=== PATIENT | male | born 1945 | race Caucasian/White ===

== ENCOUNTER 2019-08-30 07:49 | Day surgery (SDC) | payer OTHER, MEDICARE, SELFPAY ==
[2019-08-27 08:04] VITALS: BMI 34.0
--- NOTE | 2019-08-30 08:04 | ANES.PREANE2 ---
Pre-Anesthetic Assessment Pre-Anesthetic Assessment: Height/Weight: Height 1.7 m Weight 98.43 kg Preop Diagnosis: Colon CA screening Proposed Procedure: Operation Date: 08/30/19 09:30 Proposed Procedures p Colonoscopy G0104 Z12.11(Not Applicable) - Pastor Paez MD Last intake: to be taken in GI Social: Packs per day: 3 Pack years: 50+ Comment: quit age 29 Exam: Pre-Anes Outpt Exam: alert, oriented x 3, clear to auscultation bilaterally and regular rate & rhythm Airway: Submandibular: WNL Cervical ROM: WNL MP: 2 Dentition: False CV/HEM: CV/HEM: HTN Comments: '18 CABG x3 : Comments: BPH PFSH Anesthesia PFSH: Social History Smoking and tobacco status: former smoker Alcohol intake: former History of recent travel: No Current gender identity: Male Data Anesthesia Cardiac Studies: No Data to Display
[2019-08-30 08:31] VITALS: BP 154/87; PULSE 67; RESP 18; TEMP 36.6; O2SAT 98
[2019-08-30] MEDS: sodium chloride 0.9% 1,000 ML 30 ML (08:38)
--- NOTE | 2019-08-30 09:28 | W.PM.OPSUD ---
Surgery/Procedure H&P Update DATE OF PROCEDURE: August 30, 2019 DATE H&P PERFORMED: 08/23/19 PREOP DIAGNOSIS: c PLANNED PROCEDURE: Operation Date: 08/30/19 09:30 Proposed Procedures p Colonoscopy G0104 Z12.11(Not Applicable) - Pastor Paez MD
[2019-08-30 10:54] VITALS: BP 123/78; PULSE 57; RESP 16; TEMP 36.1; O2SAT 100
--- NOTE | 2019-08-30 11:02 | ANE.PACU2 ---
 Inpatient post-anesthesia follow up: Airway intact: Yes Vital signs: Temperature 97.0 F Pulse Rate 57 Respiratory Rate 16 Blood Pressure 123/78 Pulse Oximetry 100 Oxygen Delivery Me thod Nasal Cannula Oxygen Flow Rate 4 Fraction of Inspir ed Oxygen Hydration adequate: Yes Nausea and vomiting: No Pain level: 1 Mental status: Baseline
[2019-08-30 11:05] VITALS: BP 150/79; PULSE 62; RESP 16; O2SAT 99
[2019-08-30 11:14] VITALS: BP 173/98; PULSE 64; RESP 16; O2SAT 100
== END 2019-08-30 11:35 | disposition home or self-care (01) ==
PROVIDERS: Family Provider Family Medicine; PCP Family Medicine; Visit Provider Internal Medicine
PROC: 0DJD8ZZ Inspection of Lower Intestinal Tract, Via Natural or Artificial Opening Endoscopic (ICD-10-PCS; CPT 45378; principal; 2019-08-30 09:30)
DX: Z12.11 Encounter for screening for malignant neoplasm of colon (principal); Z79.82 Long term (current) use of aspirin; Z87.891 Personal history of nicotine dependence; I10 Essential (primary) hypertension; N40.0 Benign prostatic hyperplasia without lower urinary tract symptoms
CPT/HCPCS: 12345; 45378; G0121; J2704; J7030

== ENCOUNTER 2019-11-07 14:12 | Emergency (ER) | payer OTHER, MEDICARE, SELFPAY ==
--- NOTE | 2019-11-07 14:14 | ECG_ITS ---
Measurements Intervals [place] Rate: 65 P: 21 TX: 198 QRS: -11 QRSD: 159 T: 138 QT: 449 QTc: 470 SINUS RHYTHM LEFT BUNDLE BRANCH BLOCK INTERPRETATION BASED ON A DEFAULT AGE OF 40 YEARS No previous ECG available for comparison Electronically Signed On 11-08-2019 10:32:47 CDT by Blayne Lilly MD [id number] f
--- NOTE | 2019-11-07 14:14 | XRR_ITS ---
PROCEDURE INFORMATION: Exam: XR Chest, 1 View Exam date and time: 11/07/2019 2:15 PM Age: 74 years old Clinical indication: Chest pain TECHNIQUE: Imaging protocol: XR of the chest Views: 1 view. COMPARISON: No relevant prior studies available. FINDINGS: Lungs: No acute infiltrate evident. Both lungs contain multiple small 2-3 mm nodules/granulomas many of which appear calcified. Thin curvilinear scarring or atelectasis left lung base laterally. Pleural space: Unremarkable. No pleural effusion. No pneumothorax. Heart/Mediastinum: No cardiomegaly. Calcified hilar and mediastinal lymph nodes. Bones/joints: Prior sternotomy. XR/XR chest 1V portable [id number] IMPRESSION: No acute process evident.
[2019-11-07 14:22] VITALS: BP 189/108; PULSE 63; RESP 18; TEMP 36.6; O2SAT 97; BMI 32.1
--- NOTE | 2019-11-07 14:46 | ED_ITS ---
HPI - Chest Pain General: Chief Complaint: Chest Pain Stated Complaint: chest pain Time Seen by Provider: 11/07/19 14:26 History of Present Illness: HPI narrative: Patient is a 74-year-old male presenting with chest pain. He says his been having episodes of chest pain off and on for the past several days. He is pretty stoic and is difficult to get a detailed history from. He will not really endorse chest pain or shortness of breath with exertion but does admit that he has been moving slower than usual because of the symptoms. 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 His feet went numb and he developed strong pressure in his chest. He got nauseous with it and a little lightheaded. He said the symptoms are exactly the same as when he had a heart attack a few years ago. Since that time he has had a triple bypass. He has not had any chest pain or shortness of breath since then until the past few days. His primary physician is Dr. henry in [place]. He sees Dr. Fox for his heart. He also has prostate cancer and is being treated in [place] for that. He said he has not had surgery but has had a injection under the skin and he takes a pill for it. No history of blood clots or leg swelling or pain. He does have nighttime leg cramps. MD complaint: chest pain and chest heaviness Pertinent past history: coronary artery disease, prior CO and CABG Onset (ago): day(s) (3) Timing of current episode: episodic Onset: during exertion Pain location: substernal Pain radiation: none Associated symptoms: Reports dyspnea and nausea; Deny fever(s) Review of Systems General: Reports: 10 or more systems reviewed and unremarkable except in HPI and below Const: Reports: fatigue; Denies: fever(s), chills or malaise Eyes: Denies: change in vision ENMT: Denies: odynophagia Card: Reports: chest pain; Denies: swelling of feet/ankles Resp: Reports: dyspnea; Denies: productive cough or non-productive cough GI: Reports: nausea : Denies: flank pain Musc: Denies: neck pain or back pain Skin/Breast: Denies: rash Neuro: Denies: headache(s), numbness in extremities or weakness in extremities [place]/Lymph: Denies: easy bruising or easy bleeding PFS ED PFSH: Social History Smoking and tobacco status: never smoked Alcohol intake: former History of recent travel: No Current gender identity: Male Physical Exam Const: COMMON NORMALS: no acute distress, patient oriented x3, no limitations and alert GENERAL APPEARANCE: cooperative and comfortable HENMT: HEAD & SCALP: normal to inspection FACE & SINUS: normal facial exam Eye: GENERAL EYE: appearance normal, both eyes and all related structures Neck/C-Spine: COMMON NORMALS: supple, no meningeal signs and no JVD Chest: COMMONS NORMALS: normal inspection of the chest Resp: COMMON NORMALS: normal respiratory effort, No use of accessory muscles and clear to auscultation bilaterally AUSCULTATION: clear to auscultation bilaterally Cardio: COMMON NORMALS: no JVD, regular rate, regular rhythm and No murmurs present (Cardio) RATE: regular rate RHYTHM: regular rhythm GI: COMMON NORMALS: Normal to inspection, nondistended, normoactive bowel sounds present, Soft to palpation and non-tender INSPECTION: Yes normal to inspection AUSCULTATION: Yes normoactive bowel sounds PALPATION: Yes Soft to palpation Back/Pelvis: COMMON NORMALS: thoracic and lumbar spine normal to inspection Extremity: COMMON NORMALS: normal to inspection Neuro: COMMON NORMALS: patient oriented x3, moves all extremities, no focal motor deficits and no sensory deficits noted SENSORIUM/ORIENTATION: Yes alert MENINGEAL SIGNS: Yes no meningeal signs Psych: COMMON NORMALS: mental status grossly normal, cooperative and normal affect Skin: COMMON NORMALS: no rashes or lesions noted and turgor normal GENERAL SKIN EXAM: no rashes or lesions noted and turgor normal Course ED course: Patient has a moderately high heart score based on his history of prior CABG. His work-up in the ED was reassuring with negative troponins and EKGs. He is asymptomatic. I had a tech get him up and walk him around the [facility] artment to make sure he did not get dyspneic or chest pain with exertion. He said he felt fine. We discussed the significance of normal work-up in the ED and have that does not rule out future problems or pending problems. 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 We discussed that he is at moderately high risk of a bad event happening in a short time. He understands that does not want to be admitted. He will return if he has more symptoms or any other problems. I have asked the leather case finisher to follow-up with him and make sure he gets a close follow-up appointment with Dr. Fox Vital Signs: Vital signs: Vital Signs Temperature 97.9 F 11/07/19 14:22 Pulse Rate 86 11/07/19 18:36 Respiratory Rate 18 11/07/19 18:36 Blood Pressure 196/76 11/07/19 18:36 Pulse Oximetry 97 11/07/19 18:36 MDM - Chest Pain Lab Data: Labs: Lab Results 11/07/19 11/07/19 11/07/19 Range/Units 14:49 14:49 14:49 WBC 5.5 (4.0-10.0) 10^3/ uL RBC 4.65 (4.1-5.3) 10^6/u L Hgb 14.6 (11.7-16.6) g/dL Hct 44.3 (42.0-52.0) % MCV 95.3 H (80-94) fL MCH 31.4 (28.0-34.0) pg MCHC 33.0 (30.0-36.0) g/dL RDW 14.4 (12.1-15.1) % Plt Count 193 (130-400) 10^3/c mm MPV 9.1 (7.4-10.4) fL Neut % (Auto) 46.0 % Lymph % (Auto) 37.7 % [place] % (Auto) 8.7 % Eos % (Auto) 6.0 % Baso % (Auto) 0.7 % Neut # (Auto) 2.5 (1.8-7.7) 10^3/u L Lymph # (Auto) 2.1 (0.8-4.8) 10^3/u L [place] # (Auto) 0.5 (0.2-0.9) 10^3/u L Eos # (Auto) 0.3 (0.0-0.8) 10^3/u L Baso # (Auto) 0.0 (0.0-0.1) 10^3/u L Nucleated RBC % (a uto) 0 % Nucleated RBCs # 0.0 /100WBC D-Dimer (0-0.59) ug/mIFE U Sodium 139 (136-145) mmol/L Potassium 4.5 (3.5-5.1) mmol/L Chloride 100 (98-107) mmol/L Carbon Dioxide 27 (22-29) mmol/L Anion Gap 16.5 (5-19) BUN 16 (8-23) mg/dL Creatinine 1.0 (0.7-1.2) mg/dL Glucose 117 H (65-115) mg/dL Calculated Osmolal ity 285 (285-295) mOsm/k g Calcium 10.4 (8.5-10.5) mg/dL Total Bilirubin 0.2 (0.15-1.2) mg/dL AST 20 (0-40) U/L ALT 21 (0-41) U/L Alkaline Phosphata se 72 (40-130) IU/L Troponin T Baselin e 16 H (0-15) ng/mL Troponin T 120 Min [place] (0-15) ng/mL Delta Troponin T (0-10) ABS# NT-Pro-B Natriuret Pep 75 (0-125) pg/mL Total Protein 7.6 (6.6-8.7) g/dL Albumin 4.3 (3.5-5.2) g/dL Globulin 3.3 (1.3-4.6) g/dL 11/07/19 11/07/19 Range/Units 14:49 16:58 WBC (4.0-10.0) 10^3/ uL RBC (4.1-5.3) 10^6/u L Hgb (11.7-16.6) g/dL Hct (42.0-52.0) % MCV (80-94) fL MCH (28.0-34.0) pg MCHC (30.0-36.0) g/dL RDW (12.1-15.1) % Plt Count (130-400) 10^3/c mm MPV (7.4-10.4) fL Neut % (Auto) % Lymph % (Auto) % [place] % (Auto) % Eos % (Auto) % Baso % (Auto) % Neut # (Auto) (1.8-7.7) 10^3/u L Lymph # (Auto) (0.8-4.8) 10^3/u L [place] # (Auto) (0.2-0.9) 10^3/u L Eos # (Auto) (0.0-0.8) 10^3/u L Baso # (Auto) (0.0-0.1) 10^3/u L Nucleated RBC % (a uto) % Nucleated RBCs # /100WBC D-Dimer 0.75 H (0-0.59) ug/mIFE U Sodium (136-145) mmol/L Potassium (3.5-5.1) mmol/L Chloride (98-107) mmol/L Carbon Dioxide (22-29) mmol/L Anion Gap (5-19) BUN (8-23) mg/dL Creatinine (0.7-1.2) mg/dL Glucose (65-115) mg/dL Calculated Osmolal ity (285-295) mOsm/k g Calcium (8.5-10.5) mg/dL Total Bilirubin (0.15-1.2) mg/dL AST (0-40) U/L ALT (0-41) U/L Alkaline Phosphata se (40-130) IU/L Troponin T Baselin e (0-15) ng/mL Troponin T 120 Min [place] 16.38 H (0-15) ng/mL Delta Troponin T 0.38 (0-10) ABS# NT-Pro-B Natriuret Pep (0-125) pg/mL Total Protein (6.6-8.7) g/dL Albumin (3.5-5.2) g/dL Globulin (1.3-4.6) g/dL Discharge Plan Discharge Patient Disposition: Home, Self-Care Clinical Impression: Chest pain Qualifiers: Chest pain type: unspecified Qualified Code(s): R07.9 - Chest pain, unspecified Condition: Stable Prescriptions: No Action omega-3 fatty acids [Fish Oil Concentrate] 1,000 mg capsule 1,000 mg PO DAILY RF: 0 bicalutamide 50 mg tablet 50 mg PO DAILY RF: 0 metoprolol succinate 50 mg tablet extended release 24 hr 50 mg PO DAILY RF: 0 tamsulosin 0.4 mg capsule 0.4 mg PO DAILY RF: 0 simvastatin 20 mg tablet 20 mg PO DAILY RF: 0 fluticasone propionate 50 mcg/actuation spray,suspension 1 spray INTRANASAL DAILY RF: 0 aspirin 81 mg tablet,delayed release (DR/EC) 81 mg PO DAILY RF: 0 Xtandi 40 mg capsule 40 mg PO QID RF: 0 cetirizine 10 mg tablet 10 mg PO DAILY RF: 0 oxybutynin chloride 10 mg tablet extended release 24hr 10 mg PO DAILY RF: 0 Discharge Orders: Discharge Order (Routine); Ordered 11/07/19 Ordered By: Ashley Estes Referrals: Tati Henry [Primary Care Provider] - Ronnie Looney MD [Physician] - 1-3 days Discharge Diet: Usual diet Discharge Activity: Limit activity as instructed Patient Instructions: Chest Pain (ED) Activity Restrictions/Additional Instructions: Follow up with Dr. Looney for re-evaluation of your chest discomfort. Return to the ED immediately if worse in any way. Discharge Date/Time: 11/07/19 18:40 Coding Level of Care Code ED Boiler Welder for Markel Fwd Exam Comprehensive
[2019-11-07 14:56] LABS: Basophils % 0.7 %; Eosinophils # 0.3 10^3/uL (0.0-0.8); Hematocrit 44.3 % (42.0-52.0); Hemoglobin 14.6 g/dL (11.7-16.6); Lymphocytes # 2.1 10^3/uL (0.8-4.8); Lymphocytes % 37.7 %; Mean Corpuscular Hemoglobin 31.4 pg (28.0-34.0); Mean Corpuscular Volume 95.3 fL (80-94); Mean Platelet Volume 9.1 fL (7.4-10.4); Monocytes # 0.5 10^3/uL (0.2-0.9); Monocytes % 8.7 %; Neutrophils # 2.5 10^3/uL (1.8-7.7); Nucleated Red Blood Cells % 0 %; Platelet Count 193 10^3/cmm (130-400); Red Blood Count 4.65 10^6/uL (4.1-5.3); Red Cell Distribution Width 14.4 % (12.1-15.1); White Blood Count 5.5 10^3/uL (4.0-10.0)
[2019-11-07 15:19] LABS: Troponin(5th) Baseline 16 ng/mL (0-15)
[2019-11-07 15:29] LABS: Alanine Aminotransferase 21 U/L (0-41); Albumin Level 4.3 g/dL (3.5-5.2); Alkaline Phosphatase 72 IU/L (40-130); Anion Gap 16.5 (5-19); Aspartate Amino Transferase 20 U/L (0-40); Blood Urea Nitrogen 16 mg/dL (8-23); Calcium 10.4 mg/dL (8.5-10.5); Carbon Dioxide 27 mmol/L (22-29); Chloride 100 mmol/L (98-107); Globulin 3.3 g/dL (1.3-4.6); Glucose 117 mg/dL (65-115); NT Pro B Type Natriuretic Pept 75 pg/mL (0-125); Osmolality Calculated 285 mOsm/kg (285-295); Potassium 4.5 mmol/L (3.5-5.1); Sodium 139 mmol/L (136-145); Total Bilirubin 0.2 mg/dL (0.15-1.2); Total Protein 7.6 g/dL (6.6-8.7)
[2019-11-07] MEDS: aspirin 81 mg Chew Tablet 324 MG PO (15:42)
[2019-11-07 15:44] LABS: D Dimer 0.75 ug/mIFEU (0-0.59)
[2019-11-07 15:51] VITALS: BP 164/85; PULSE 57; RESP 16; O2SAT 94
--- NOTE | 2019-11-07 16:14 | ECG_ITS ---
Measurements Intervals [place] Rate: 54 P: 31 DC: 203 QRS: -5 QRSD: 140 T: 130 QT: 484 QTc: 459 SINUS BRADYCARDIA LEFT BUNDLE BRANCH BLOCK [120+ ms QRS DURATION, 80+ ms Q/S IN V1/V2, 85+ ms R IN I/aVL/V5/V6] No previous ECG available for comparison Electronically Signed On 11-08-2019 10:35:03 CDT by Blayne Lilly MD [id number]
--- NOTE | 2019-11-07 16:16 | CTR_ITS ---
PROCEDURE INFORMATION: Exam: CT Angiography Chest With Contrast Exam date and time: 11/07/2019 4:41 PM Age: 74 years old Clinical indication: Shortness of breath; Patient HX: C/O chest pressure x 1 week worsening this am w SOB; Additional info: Sod, cp, h/o cancer TECHNIQUE: Imaging protocol: Computed tomographic angiography of the chest with intravenous contrast. 3D rendering: MIP and/or 3D reconstructed images were created by the technologist. Radiation optimization: All CT scans at this facility use at least one of these dose optimization techniques: automated exposure control; mA and/or kV adjustment per patient size (includes targeted exams where dose is matched to clinical indication); or iterative reconstruction. Contrast material: OMNI 350; Contrast volume: 95 ml; Contrast route: 20G; COMPARISON: CR (CHEST, ) 11/07/2019 2:41 PM RADIATION DOSE METRICS: Total DLP: 619.49 mGy-cm FINDINGS: Pulmonary arteries: Normal. No pulmonary emboli. Aorta: Unremarkable. No aortic aneurysm. No aortic dissection. Lungs: Both lungs contain numerous small 3-4 mm benign calcified granulomas. Areas of fine subpleural reticular density most pronounced in the lung bases posteriorly suggesting minor atelectasis or subpleural fibrosis. Small approximately 2 cm area of chronic appearing peribronchial thickening superior-medial aspect of right middle lobe (series 2, axial image 249). Pleural space: Unremarkable. No pneumothorax. No pleural effusion. Heart: Prior CABG. Mild to moderate coronary artery calcification. No cardiomegaly. Lymph nodes: Calcified hilar and mediastinal lymph nodes. Bones/joints: Unremarkable. No acute fracture. Soft tissues: Unremarkable. CT/CT angio chest PE protcl [id number] IMPRESSION: 1.) No acute process evident. 2.) Old granulomatous disease. Areas of fine subpleural reticular density most pronounced in the lung bases posteriorly suggesting minor atelectasis or subpleural fibrosis. Small approximately 2 cm area of chronic appearing peribronchial thickening superior-medial aspect of right middle lobe (series 2, axial image 249). Radiation Dose CTDIVOL = (mGy): DLP = 619.49 (mGy-cm)
[2019-11-07] MEDS: iohexol 350 mg/mL 100 mL Btl IV (16:58)
[2019-11-07 17:27] VITALS: BP 173/76; PULSE 54; RESP 14; O2SAT 96
[2019-11-07 17:39] LABS: Troponin 5 2HR 16.38 ng/mL (0-15); Troponin 5 2HR Delta 0.38 ABS# (0-10)
[2019-11-07 18:31] VITALS: BP 170/99; PULSE 100; RESP 16; O2SAT 98
[2019-11-07 18:36] VITALS: BP 196/76; PULSE 86; RESP 18; O2SAT 97
--- NOTE | 2019-11-10 11:10 | DCPLANNER ---
manager payment had message to schedule a follow up appointment for patient with [facility]. manager payment called [facility], spoke with Marine, gave clinic patients information. manager payment was told that patients information would be printed and reviewed. Clinic will call patient with appointment information.
--- NOTE | 2019-11-12 13:54 | DCPLANNER ---
Patient has a follow up appointment scheduled for Saturday, December 28, 2019 at 2:00. Clinic will call patient with appointment information.
--- NOTE | 2019-12-29 15:21 | DCPLANNER ---
Patient did attend appointment scheduled for 12.28.19 with [facility].
== END 2019-11-07 18:40 | disposition home or self-care (01) ==
PROVIDERS: Physician Assistant; Emergency Provider Emergency Medicine; PCP Family Medicine
DX: R07.9 Chest pain, unspecified (principal); Z79.82 Long term (current) use of aspirin
CPT/HCPCS: 12345; 36415; 71045; 71275; 80053; 83880; 84484; 85025; 85378; 93005; 93010; 99283; 99284; Q9967

== ENCOUNTER 2020-04-22 22:40 | Emergency (ER) | payer OTHER, MEDICARE, SELFPAY ==
--- NOTE | 2020-04-22 22:45 | ECG_ITS ---
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 Measurements Intervals [place] Rate: 63 P: 33 MS: 178 QRS: 57 QRSD: 174 T: 194 QT: 465 QTc: 479 Interpretive Statements SINUS RHYTHM LEFT BUNDLE BRANCH BLOCK [120+ ms QRS DURATION, 80+ ms Q/S IN V1/V2, 85+ ms R IN I/aVL/V5/V6] Compared to ECG 11/07/2019 16:15:01 Sinus bradycardia no longer present Electronically Signed On 04-23-2020 9:21:33 DIRT CONTRACTOR by Margot Ingram M.D. [id number] f
--- NOTE | 2020-04-22 22:45 | XRR_ITS ---
PROCEDURE INFORMATION: Exam: XR Chest, 1 View Exam date and time: 04/22/2020 11:11 PM Age: 74 years old Clinical indication: Chest pain; Type not specified TECHNIQUE: Imaging protocol: XR of the chest Views: 1 view. COMPARISON: CR (CHEST, ) 11/07/2019 2:41 PM FINDINGS: Lungs: Unremarkable. No consolidation. Pleural space: Unremarkable. No pleural effusion. No pneumothorax. Heart/Mediastinum: Mild cardiomegaly. Bones/joints: Sternotomy wires. XR/XR chest 1V portable [id number] IMPRESSION: 1. Negative for infiltrate 2. Mild cardiomegaly.
[2020-04-22 22:49] VITALS: BP 179/94; PULSE 63; RESP 14; TEMP 36.3; O2SAT 96; BMI 32.8
--- NOTE | 2020-04-22 22:51 | W.ED.CHESTPA ---
HPI - Chest Pain General: Chief Complaint: Chest Pain Stated Complaint: cp Time Seen by Provider: 04/22/20 22:43 Source: patient and family Mode of arrival: ambulatory Limitations: no limitations History of Present Illness: HPI narrative: Mr. Lerma is a very nice 74-year-old male comes in complaining of chest pain that began about an hour and a half prior to arrival. He describes it as a mild ache in his chest that lasted approximately 2 to 3 seconds and then is followed by a quick sharp pain. The pain is in the upper center of his chest. It does not radiate. He denies any associated shortness of breath, diaphoresis, nausea or vomiting, syncope/near syncope, or palpitations. Patient denies any leg pain or swelling. Patient denies having anything similar to this in the recent or distant past. The pain episodes are so brief that he is unaware if there are any aggravating or alleviating factors. He states he has had approximately 5-7 episodes in the past hour and a half. Associated symptoms: Deny abdominal pain, diaphoresis, dyspnea, fever(s), nausea, palpitations, syncope or vomiting Review of Systems Const: Denies: fever(s), chills, body aches, fatigue, malaise or diaphoresis Eyes: Denies: change in vision, blurry vision, photophobia, eye discomfort, eye discharge, eye redness or yellow eyes ENMT: Denies: throat pain, odynophagia, hoarseness, swelling of lips/tongue, ear or mastoid pain, ear discharge, change in hearing or nasal discharge Card: Reports: chest pain; Denies: palpitations, irregular heart rhythm, edema, lightheadedness, syncope, pre-syncope, dyspnea on exertion or orthopnea Resp: Denies: dyspnea, productive cough, non-productive cough, wheezing, hemoptysis or chest congestion GI: Denies: abdominal pain, nausea, vomiting, hematemesis, coffee ground emesis, heartburn, diarrhea, constipation, GI cramping, hematochezia or melena : Denies: flank pain, dysuria, urinary frequency, urinary urgency or hematuria Musc: Denies: neck pain, back pain, extremity pain, extremity swelling, joint pain, joint swelling, joint redness, joint warmth or joint stiffness Skin/Breast: Denies: rash, pruritus, erythema, skin pain or skin tenderness Neuro: Denies: headache(s), numbness in extremities, weakness in extremities, sensory changes, lack of coordination, difficulty walking, dizziness, vertigo, confusion, Slurred speech present or seizure-like activity [place]/Lymph: Denies: easy bruising, easy bleeding, petechiae, purpura or enlarged lymph nodes All/Imm: Denies: urticaria, throat swelling, tongue swelling, facial swelling or acute wheezing PFSH ED PFSH: Medical History (Updated 04/23/20 @ 01:13 by Rosina Candelaria) CAD (coronary artery disease) Essential hypertension Hx of atherosclerotic cardiovascular disease Hx of chest pain Hyperlipemia Prostate cancer Surgical History (Updated 01/01/20 @ 22:01 by Ronnie Looney MD) Hx of CABG Social History Smoking and tobacco status: never smoked Alcohol intake: former History of recent travel: No Current gender identity: Male Physical Exam Const: COMMON NORMALS: no acute distress, patient oriented x3, no limitations and alert GENERAL APPEARANCE: cooperative HENMT: COMMON NORMALS: normocephalic, atraumatic, external ears normal, EAC's normal and Normal external nose present HEAD & SCALP: normal to inspection, normocephalic and atraumatic FACE & SINUS: normal facial exam and face symmetric NOSE: Normal external nose present and Normal nares present EXTERNAL EAR: Yes external ears normal EXTERNAL AUDITORY CANAL: EAC's normal MOUTH: Normal oral and palatal mucosa present, lip normal and tongue normal Eye: COMMON NORMALS: Equal, round and reactive pupils present and conjunctivae normal GENERAL EYE: appearance normal, both eyes and all related structures ALIGNMENT: Yes alignment normal PERIORBITAL: periorbital findings normal EYELID: eyelids normal CONJUNCTIVA: Yes conjunctivae normal SCLERA: sclerae normal PUPIL: Yes Equal, round and reactive pupils present Neck/C-Spine: COMMON NORMALS: full ROM, no lymphadenopathy, supple, no meningeal signs and no JVD GENERAL: Yes normal visual inspection and Yes trachea midline Chest: COMMONS NORMALS: normal inspection of the chest and normal palpation of entire chest wall Resp: COMMON NORMALS: normal respiratory effort, No retractions, No use of accessory muscles and clear to auscultation bilaterally EFFORT & INSPECTION: Yes able to speak in complete sentences and Yes symmetric chest movement AUSCULTATION: clear to auscultation bilaterally, no crackles, no rales, no rhonchi and no wheezes Cardio: COMMON NORMALS: no JVD, regular rate, regular rhythm, S1 normal heart sound present and S2 normal heart sound present RATE: regular rate RHYTHM: regular rhythm HEART SOUNDS: S1 normal heart sound present, S2 normal heart sound present, no click, no gallops, no murmurs and no rubs GI: COMMON NORMALS: Soft to palpation and No hepatosplenomegaly present PALPATION: Yes Soft to palpation, No Tenderness to palpation present (GI), No Guarding due to palpation present (GI), No Rigid due to palpation, Yes No hepatosplenomegaly present, No Hernia present, No Palpable mass present and No Pulsatile mass present : COMMON NORMALS: Yes no CVA tenderness BLADDER/KIDNEY EXAM: Yes no CVA tenderness Back/Pelvis: COMMON NORMALS: no CVA tenderness, thoracic and lumbar spine normal to inspection, no thoracic nor lumbar tenderness and thoraco-lumbar ROM normal Extremity: COMMON NORMALS: normal to inspection, full ROM, capillary refill normal, no joint enlargement, no clubbing, cyanosis or edema and no calf tenderness Neuro: COMMON NORMALS: patient oriented x3, CN's II-XII intact bilaterally, moves all extremities, no focal motor deficits and no sensory deficits noted SENSORIUM/ORIENTATION: Yes alert MENINGEAL SIGNS: Yes no meningeal signs SPEECH: speech normal Psych: COMMON NORMALS: mental status grossly normal, Normal thought process present, cooperative, normal affect, speech normal and activity/motor behavior normal SPEECH: Yes normal speech THOUGHT PROCESS: Normal thought process present Skin: COMMON NORMALS: no rashes or lesions noted, turgor normal, no jaundice, no petechiae and no mottling GENERAL SKIN EXAM: no rashes or lesions noted and turgor normal Course Vital Signs: Vital signs: Vital Signs Temperature 97.3 F L 04/23/20 02:07 Pulse Rate 57 L 04/23/20 02:07 Respiratory Rate 16 04/23/20 02:07 Blood Pressure 158/83 04/23/20 02:07 Pulse Oximetry 98 04/23/20 02:07 MDM - Chest Pain MDM Narrative: Medical decision making narrative: Mr. Lerma is a nice 74-year-old male who comes in complaining of pain in his chest that is 8 mild dull ache that lasts 1 to 2 seconds followed by a sudden sharp pain that lasts 1 second. The patient has had approximately 12 episodes of this since onset. He has had several episodes here. The pain itself lasts no more than 2 to 3 seconds. He has no other associated symptoms such as radiation of the pain, shortness of breath, diaphoresis, nausea vomiting, or syncope or near syncope. 3 years ago when the patient had cardiac type pain he stated it was completely different he describes it as a pressure that radiated out to both shoulders down both arms with shortness of breath diaphoresis and nausea. Patient has had no problems with cardiac type pain since he had his bypass surgery 3 years ago. Tonight the patient has had 2 - troponins here and his EKG is at its baseline with a left bundle branch block. Using the hospital chest pain pathway the patient does have a heart score of 5 primarily due to his age and risk factors. Using the T-MACS decision Aid he scores as a low risk with a less than 3% chance of MACE. Despite this I talked to the patient and his at length about his heart score and his risk factors of heart disease. I have recommended and offered the patient to come into the hospital for formal cardiac rule out, possible cardiology consult and stress testing but he refused. I then offered to at least keep him here until I can get a 6-hour troponin but he refused this as well. I informed him that his risk was mild to moderate but with more than 1% risk I was uncomfortable sending him home but despite my trying to convince him to stay he declined and wanted to go home. I again reviewed with him that the risks of a heart problem that were missed could result in or severe permanent disability but he still refused to stay and wanted to go home. He did agree to follow-up as an outpatient for an outpatient stress test and cardiology appointment with Dr. Marion but [facility] The patient did understand he could return if his symptoms changed or he changed his mind but at this time he seems fairly convinced that this is not his heart and wants to go home. The patient was warned but he was also welcomed to return. Lab Data: Attestation: I reviewed the patient's lab results. Labs: Lab Results 04/22/20 04/22/20 04/22/20 Range/Units 23:08 23:08 23:08 WBC 7.0 (4.0-10.0) 10^3/ uL RBC 4.52 (4.1-5.3) 10^6/u L Hgb 14.1 (11.7-16.6) g/dL Hct 43.0 (42.0-52.0) % MCV 95.1 H (80-94) fL MCH 31.2 (28.0-34.0) pg MCHC 32.8 (30.0-36.0) g/dL RDW 14.4 (12.1-15.1) % Plt Count 209 (130-400) 10^3/c mm MPV 9.2 (7.4-10.4) fL Neut % (Auto) 47.7 % Lymph % (Auto) 37.3 % [place] % (Auto) 9.1 % Eos % (Auto) 4.6 % Baso % (Auto) 0.6 % Neut # (Auto) 3.32 (1.8-7.7) 10^3/u L Lymph # (Auto) 2.6 (0.8-4.8) 10^3/u L [place] # (Auto) 0.6 (0.2-0.9) 10^3/u L Eos # (Auto) 0.3 (0.0-0.8) 10^3/u L Baso # (Auto) 0.0 (0.0-0.1) 10^3/u L Nucleated RBC % (a uto) 0 % Nucleated RBCs # 0.0 /100WBC PT 12.90 (12.1-14.9) SECO NDS INR 0.94 (0.8-1.2) D-Dimer (0-0.59) ug/mIFE U Sodium 136 (136-145) mmol/L Potassium 3.9 (3.5-5.1) mmol/L Chloride 100 (98-107) mmol/L Carbon Dioxide 26 (22-29) mmol/L Anion Gap 13.9 (5-19) BUN 21 (8-23) mg/dL Creatinine 0.9 (0.7-1.2) mg/dL GFR Calculation Not Reportable Glucose 106 (65-115) mg/dL Calculated Osmolal ity 285 (285-295) mOsm/k g Calcium 9.4 (8.5-10.5) mg/dL Magnesium 1.9 (1.7-2.3) mg/dL Total Bilirubin 0.2 (0.15-1.2) mg/dL AST 19 (0-40) U/L ALT 23 (0-41) U/L Alkaline Phosphata se 82 (40-130) IU/L Troponin T Baselin e (0-15) ng/L Troponin T 120 Min [place] (0-15) ng/L Delta Troponin T (0-10) ABS# NT-Pro-B Natriuret Pep 82 (0-125) pg/mL Total Protein 7.2 (6.6-8.7) g/dL Albumin 4.2 (3.5-5.2) g/dL Globulin 3.0 (1.3-4.6) g/dL Lipase 63 H (13-60) U/L 04/22/20 04/22/20 04/23/20 Range/Units 23:08 23:08 00:19 WBC (4.0-10.0) 10^3/ uL RBC (4.1-5.3) 10^6/u L Hgb (11.7-16.6) g/dL Hct (42.0-52.0) % MCV (80-94) fL MCH (28.0-34.0) pg MCHC (30.0-36.0) g/dL RDW (12.1-15.1) % Plt Count (130-400) 10^3/c mm MPV (7.4-10.4) fL Neut % (Auto) % Lymph % (Auto) % [place] % (Auto) % Eos % (Auto) % Baso % (Auto) % Neut # (Auto) (1.8-7.7) 10^3/u L Lymph # (Auto) (0.8-4.8) 10^3/u L [place] # (Auto) (0.2-0.9) 10^3/u L Eos # (Auto) (0.0-0.8) 10^3/u L Baso # (Auto) (0.0-0.1) 10^3/u L Nucleated RBC % (a uto) % Nucleated RBCs # /100WBC PT (12.1-14.9) SECO NDS INR (0.8-1.2) D-Dimer 0.39 (0-0.59) ug/mIFE U Sodium (136-145) mmol/L Potassium (3.5-5.1) mmol/L Chloride (98-107) mmol/L Carbon Dioxide (22-29) mmol/L Anion Gap (5-19) BUN (8-23) mg/dL Creatinine (0.7-1.2) mg/dL GFR Calculation Glucose (65-115) mg/dL Calculated Osmolal ity (285-295) mOsm/k g Calcium (8.5-10.5) mg/dL Magnesium (1.7-2.3) mg/dL Total Bilirubin (0.15-1.2) mg/dL AST (0-40) U/L ALT (0-41) U/L Alkaline Phosphata se (40-130) IU/L Troponin T Baselin e 14 (0-15) ng/L Troponin T 120 Min [place] 13.76 (0-15) ng/L Delta Troponin T -0.24 L (0-10) ABS# NT-Pro-B Natriuret Pep (0-125) pg/mL Total Protein (6.6-8.7) g/dL Albumin (3.5-5.2) g/dL Globulin (1.3-4.6) g/dL Lipase (13-60) U/L Imaging Data^: CXR: Attestation: I personally reviewed and interpreted this imaging study as follows: My impression: No acute cardiopulmonary findings. EKG Data^: EKG 1: Attestation: I personally reviewed and interpreted this EKG as follows: EKG interpretation date: 04/23/20 EKG interpretation time: 22:49 Interpretation: Normal sinus rhythm at 63 beats a minute, left bundle branch block, appropriate discordance. Similar to previous EKG 2: Attestation: I personally reviewed and interpreted this EKG as follows: EKG interpretation date: 04/23/20 EKG interpretation time: 00:28 Interpretation: Sinus bradycardia 55 beats a minute, left bundle branch block, no other acute ST-T wave changes. Similar to previous Discharge Plan Discharge Patient Disposition: Home Clinical Impression: Chest pain Qualifiers: Chest pain type: unspecified Qualified Code(s): R07.9 - Chest pain, unspecified Condition: Stable Prescriptions: No Action omega-3 fatty acids [Fish Oil Concentrate] 1,000 mg capsule 1,000 mg PO DAILY RF: 0 bicalutamide 50 mg tablet 50 mg PO DAILY RF: 0 metoprolol succinate 50 mg tablet extended release 24 hr 50 mg PO DAILY RF: 0 tamsulosin 0.4 mg capsule 0.4 mg PO DAILY RF: 0 simvastatin 20 mg tablet 20 mg PO DAILY RF: 0 fluticasone propionate 50 mcg/actuation spray,suspension 1 spray INTRANASAL DAILY RF: 0 aspirin 81 mg tablet,delayed release (DR/EC) 81 mg PO DAILY RF: 0 Xtandi 40 mg capsule 40 mg PO QID RF: 0 cetirizine 10 mg tablet 10 mg PO DAILY RF: 0 oxybutynin chloride 10 mg tablet extended release 24hr 10 mg PO DAILY RF: 0 Discharge Orders: Discharge Order (Routine); Ordered 04/23/20 Ordered By: Rosina Candelaria Referrals: Tati Cole [Primary Care Provider] - 1-3 days Discharge Diet: Advance as tolerated Discharge Activity: Increase activity as tolerated Patient Instructions: Chest Pain (ED) Activity Restrictions/Additional Instructions: Please return to the ER immediately for any of the signs or symptoms listed on your discharge instruction sheets, worsening/changing of your symptoms, you are not getting better as quickly as expected, or for ANY other cause or concerns. You have been offered admission to the hospital for further evaluation of your heart including consult by crystallizer operator and possible stress test. I have offered to keep you here in the ER longer to test your heart further but you have declined both options. As we discussed heart problems can be life-threatening so if your pain does not resolve, becomes more frequent, or you develop any other associated symptoms with this you are more than welcome to return to the ER at any time for recheck. I have advised the safest thing which is to come into the hospital for further testing but you have declined so we will have you set up for an outpatient stress test and to follow-up with Dr. Marion for further testing. At any time should you change your mind you are more than welcome to return to the ER for recheck. Coding Level of Care Code ED Switch Coupler for Markel Fwd Exam Comprehensive
[2020-04-22] MEDS: aspirin 325 mg Tablet PO (22:53)
[2020-04-22 23:21] LABS: Basophils % 0.6 %; Eosinophils # 0.3 10^3/uL (0.0-0.8); Eosinophils % 4.6 %; Hemoglobin 14.1 g/dL (11.7-16.6); Lymphocytes # 2.6 10^3/uL (0.8-4.8); Lymphocytes % 37.3 %; Mean Corpuscular HGB Conc 32.8 g/dL (30.0-36.0); Mean Corpuscular Hemoglobin 31.2 pg (28.0-34.0); Mean Corpuscular Volume 95.1 fL (80-94); Mean Platelet Volume 9.2 fL (7.4-10.4); Monocytes # 0.6 10^3/uL (0.2-0.9); Monocytes % 9.1 %; Neutrophils # 3.32 10^3/uL (1.8-7.7); Neutrophils % 47.7 %; Nucleated Red Blood Cells % 0 %; Platelet Count 209 10^3/cmm (130-400); Red Blood Count 4.52 10^6/uL (4.1-5.3); Red Cell Distribution Width 14.4 % (12.1-15.1)
[2020-04-22 23:24] VITALS: BP 159/89; PULSE 63; RESP 20; O2SAT 96
[2020-04-22 23:30] VITALS: BP 143/80; PULSE 63; RESP 21; O2SAT 95
[2020-04-22 23:36] LABS: INR 0.94 (0.8-1.2)
[2020-04-22 23:46] LABS: Troponin(5th) Baseline 14 ng/L (0-15)
[2020-04-22 23:52] LABS: Alanine Aminotransferase 23 U/L (0-41); Albumin Level 4.2 g/dL (3.5-5.2); Alkaline Phosphatase 82 IU/L (40-130); Anion Gap 13.9 (5-19); Aspartate Amino Transferase 19 U/L (0-40); Blood Urea Nitrogen 21 mg/dL (8-23); Calcium 9.4 mg/dL (8.5-10.5); Carbon Dioxide 26 mmol/L (22-29); Chloride 100 mmol/L (98-107); Glucose 106 mg/dL (65-115); Lipase 63 U/L (13-60); Magnesium 1.9 mg/dL (1.7-2.3); NT Pro B Type Natriuretic Pept 82 pg/mL (0-125); Osmolality Calculated 285 mOsm/kg (285-295); Potassium 3.9 mmol/L (3.5-5.1); Sodium 136 mmol/L (136-145); Total Bilirubin 0.2 mg/dL (0.15-1.2); Total Protein 7.2 g/dL (6.6-8.7)
[2020-04-23] VITALS: BP 135/76; PULSE 61; RESP 15; O2SAT 96
[2020-04-23 00:30] VITALS: BP 156/83; PULSE 66; RESP 14; O2SAT 97
[2020-04-23 00:38] LABS: D Dimer 0.39 ug/mIFEU (0-0.59)
[2020-04-23] MEDS: acetaminophen 500 mg Tablet 1000 MG PO (00:44)
--- NOTE | 2020-04-23 00:45 | ECG_ITS ---
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 Measurements Intervals [place] Rate: 55 P: 38 MI: 188 QRS: 59 QRSD: 177 T: 229 QT: 495 QTc: 477 Interpretive Statements SINUS BRADYCARDIA LEFT BUNDLE BRANCH BLOCK [120+ ms QRS DURATION, 80+ ms Q/S IN V1/V2, 85+ ms R IN I/aVL/V5/V6] Compared to ECG 04/22/2020 22:49:24 Sinus rhythm no longer present Electronically Signed On 04-23-2020 9:27:39 CLAIM MANAGER by Margot Ingram M.D. [email or web address] [email or web address] [id number]
[2020-04-23] MEDS: ketorolac 30 mg/mL INJ 10 MG IVP (00:47)
[2020-04-23 00:52] LABS: Troponin 5 2HR 13.76 ng/L (0-15)
[2020-04-23 01:00] VITALS: BP 155/86; PULSE 57; RESP 18; O2SAT 97
[2020-04-23 01:00] LABS: Troponin 5 2HR Delta -0.24 ABS# (0-10)
[2020-04-23 02:07] VITALS: BP 158/83; PULSE 57; RESP 16; TEMP 36.3; O2SAT 98
--- NOTE | 2020-04-24 15:57 | DCPLANNER ---
corporate safety manager had message to schedule a follow up appointment for patient with [facility], and an outpatient stress test. corporate safety manager cannot schedule an out patient stress test due to the patient having [facility] insurance. The VA will not pay for a stress test from the ED. Patient will need to follow up with [facility] and if a physician at [facility] determines that a patient will need to have a stress test, then [facility] can order the out patient stress test. corporate safety manager did call [facility], spoke with Merissa, a follow up appointment is scheduled for Saturday, April 25, 2020 at 10:00 with AUTOMATIC SPLICING MACHINE OPERATOR, Kriss Quezada. corporate safety manager called patient, spoke with patients , gave her the appointment information.
--- NOTE | 2020-05-30 12:32 | DCPLANNER ---
Patient had a follow up appointment scheduled for 04.25.20 with [facility] - patient did attend appointment.
== END 2020-04-23 02:07 | disposition home or self-care (01) ==
PROVIDERS: Emergency Provider Emergency Medicine; PCP Family Medicine
DX: R07.9 Chest pain, unspecified (principal); Z79.82 Long term (current) use of aspirin; I25.10 Atherosclerotic heart disease of native coronary artery without angina pectoris; I10 Essential (primary) hypertension; E78.5 Hyperlipidemia, unspecified; Z85.46 Personal history of malignant neoplasm of prostate; Z95.1 Presence of aortocoronary bypass graft
CPT/HCPCS: 12345; 71045; 80053; 83690; 83735; 83880; 84484; 85025; 85378; 85610; 93005; 96374; 96375; 99283; 99284; J1885

== ENCOUNTER 2020-10-16 09:31 | Emergency (ER) | payer OTHER, MEDICARE, SELFPAY ==
[2020-10-16 09:45] VITALS: BP 154/85; PULSE 64; RESP 18; TEMP 36.3; O2SAT 95; BMI 33.6
--- NOTE | 2020-10-16 11:21 | XRR_ITS ---
PROCEDURE INFORMATION: Exam: XR Chest Exam date and time: 10/16/2020 11:43 AM Age: 75 years old Clinical indication: Cough and fever and shortness of breath; Patient HX: HX of prostate cancer; Additional info: Cough, fever TECHNIQUE: Imaging protocol: XR of the chest. Views: 1 view. COMPARISON: CR XR chest 1V portable [id number] 04/22/2020 11:16 PM FINDINGS: Lungs: There are scattered tiny benign calcified granulomas in the lungs. Otherwise the lungs are clear. Pleural spaces: Unremarkable. No pleural effusion. No pneumothorax. Heart/Mediastinum: The patient has undergone coronary bypass surgery. The heart is not enlarged. Benign calcified mediastinal lymph nodes are present. Bones/joints: Unremarkable. XR/XR chest 1V portable [id number] IMPRESSION: No acute cardiopulmonary abnormality.
--- NOTE | 2020-10-16 11:24 | ECG_ITS ---
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 Measurements Intervals [place] Rate: 61 P: 42 NM: 196 QRS: 42 QRSD: 136 T: 81 QT: 450 QTc: 454 Interpretive Statements SINUS RHYTHM INTRAVENTRICULAR CONDUCTION DELAY [130+ ms QRS DURATION] Compared to ECG 04/23/2020 00:28:11 Intraventricular conduction delay now present Sinus bradycardia no longer present Left bundle-branch block no longer present Electronically Signed On 10-18-2020 7:59:38 CDT by Javier Zepeda M.D. [id number]
--- NOTE | 2020-10-16 11:25 | W.ED.COVID ---
HPI - COVID General: Chief Complaint: COVID symptoms Stated Complaint: DIZZY, COUGH, LETHARGIC Time Seen by Provider: 10/16/20 11:21 Triage information: Has fever, cough or shortness of breath. No known COVID + exposure last 14 days History of Present Illness: HPI Narrative: Patient has been ill 5 days since last Friday. Patient reports fatigue. Patient has a history of coronary artery disease, prostate cancer, and high cholesterol. Patient takes medications for his chronic illnesses. Patient does not know of any Covid exposure. Patient's spouse is also ill. Patient appears mildly unwell. Patient appears no acute distress. MD complaint: has COVID symptoms Prior covid testing: no COVID 19 common symptoms: positive cough and fatigue Severity: moderate Pertinent comorbid conditions: heart disease Treatment prior to arrival: none COVID Results: SARS-CoV-2 Antigen (Rapid) Positive (Negative) H 10/16/20 12:20 10/16/20 Review of Systems General: Reports: 10 or more systems reviewed and unremarkable except in HPI and below Const: Reports: fatigue PFSH ED PFSH: Medical History CAD (coronary artery disease) Essential hypertension Hx of atherosclerotic cardiovascular disease Hx of chest pain Hyperlipemia Prostate cancer Surgical History Hx of CABG Social History Smoking and tobacco status: never smoked Alcohol intake: former History of recent travel: No Current gender identity: Male Physical Exam Const: COMMON NORMALS: no acute distress and patient oriented x3 GENERAL APPEARANCE: cooperative HENMT: COMMON NORMALS: normocephalic and Normal external nose present HEAD & SCALP: normal to inspection and normocephalic NOSE: Normal external nose present MOUTH: Normal oral and palatal mucosa present THROAT: postnasal drainage Eye: GENERAL EYE: appearance normal, both eyes and all related structures Neck/C-Spine: COMMON NORMALS: full ROM Lymph: LYMPHATIC: no lymphadenopathy noted Chest: COMMONS NORMALS: normal inspection of the chest Resp: COMMON NORMALS: normal respiratory effort EFFORT & INSPECTION: Yes able to speak in complete sentences Cardio: COMMON NORMALS: regular rate and regular rhythm RATE: regular rate RHYTHM: regular rhythm GI: COMMON NORMALS: non-tender Back/Pelvis: COMMON NORMALS: thoracic and lumbar spine normal to inspection Extremity: COMMON NORMALS: normal to inspection Neuro: COMMON NORMALS: patient oriented x3 and moves all extremities Psych: COMMON NORMALS: mental status grossly normal and cooperative Skin: COMMON NORMALS: no rashes or lesions noted GENERAL SKIN EXAM: no rashes or lesions noted Course Vital Signs: Vital signs: Vital Signs Temperature 97.3 F L 10/16/20 09:45 Pulse Rate 61 10/16/20 13:21 Respiratory Rate 14 10/16/20 13:21 Blood Pressure 164/89 10/16/20 13:21 Pulse Oximetry 94 10/16/20 13:21 MDM - COVID MDM Narrative: Medical decision making narrative: Patient comes in today with complaints of fatigue. Patient has been ill for about 5 to 6 days. Patient only reports symptoms of fatigue and may be some mild nasal drainage. Patient denies any cough or congestion. Patient denies any shortness of breath. Patient appears mildly unwell. On exam lungs are clear to auscultation. Skin is warm and dry. Abdomen soft nontender. No edema is noted in the extremities. Differential diagnosis includes but not limited to viral syndrome, COVID-19, ACS, anemia. Laboratory values were unremarkable except for some mild elevation in CRP of 14, troponin at 16, and a positive COVID-19 test. Reviewed exam with patient with recommendations for treatment and follow-up. This time I would recommend supportive care and monitoring for worsening symptoms. Patient reported understanding and agreed to plan. Lab Data: Labs: Lab Results 10/16/20 10/16/20 10/16/20 Range/Units 12:15 12:15 12:15 WBC 4.3 (4.0-10.0) 10^3/ uL RBC 4.80 (4.1-5.3) 10^6/u L Hgb 14.7 (11.7-16.6) g/dL Hct 45.1 (42.0-52.0) % MCV 94.0 (80-94) fL MCH 30.6 (28.0-34.0) pg MCHC 32.6 (30.0-36.0) g/dL RDW 14.7 (12.1-15.1) % Plt Count 174 (130-400) 10^3/c mm MPV 9.5 (7.4-10.4) fL Neut % (Auto) 47.1 % Lymph % (Auto) 39.8 % [place] % (Auto) 8.9 % Eos % (Auto) 2.3 % Baso % (Auto) 0.7 % Neut # (Auto) 2.01 (1.8-7.7) 10^3/u L Lymph # (Auto) 1.7 (0.8-4.8) 10^3/u L [place] # (Auto) 0.4 (0.2-0.9) 10^3/u L Eos # (Auto) 0.1 (0.0-0.8) 10^3/u L Baso # (Auto) 0.0 (0.0-0.1) 10^3/u L Nucleated RBC % (a uto) 0 % Nucleated RBCs # 0.0 /100WBC D-Dimer 0.45 (0-0.59) ug/mIFE U Sodium 137 (136-145) mmol/L Potassium 4.2 (3.5-5.1) mmol/L Chloride 101 (98-107) mmol/L Carbon Dioxide 26 (22-29) mmol/L Anion Gap 14.2 (5-19) BUN 13 (8-23) mg/dL Creatinine 0.7 (0.7-1.2) mg/dL GFR Calculation Not Reportable Glucose 101 (65-115) mg/dL Calculated Osmolal ity 284 L (285-295) mOsm/k g Lactic Acid (0.5-2.2) mmol/L Calcium 8.6 (8.5-10.5) mg/dL Total Bilirubin 0.4 (0.15-1.2) mg/dL AST 21 (0-40) U/L ALT 23 (0-41) U/L Alkaline Phosphata se 68 (40-130) IU/L Troponin T Baselin e (0-15) ng/L C-Reactive Protein 14.9 H (0.0-4.9) mg/L NT-Pro-B Natriuret Pep 76 (0-450) pg/mL Total Protein 7.2 (6.6-8.7) g/dL Albumin 4.2 (3.5-5.2) g/dL Globulin 3.0 (1.3-4.6) g/dL Urine Color (Yellow) Urine Appearance (CLEAR) Urine pH (5-7) Ur Specific Gravit y (1.005-1.030) Urine Protein (Negative) Urine Glucose (UA) (Normal) Urine Ketones (Negative) Urine Blood (Negative) Urine Nitrate (Negative) Urine Bilirubin (Negative) Urine Urobilinogen (Negative) mg/dL Ur Leukocyte Tracy ase (Negative) Influenza Type A A g (Negative) Influenza Type B A g (Negative) SARS-CoV-2 Ag (Rap id) (Negative) 10/16/20 10/16/20 10/16/20 Range/Units 12:15 12:15 12:15 WBC (4.0-10.0) 10^3/ uL RBC (4.1-5.3) 10^6/u L Hgb (11.7-16.6) g/dL Hct (42.0-52.0) % MCV (80-94) fL MCH (28.0-34.0) pg MCHC (30.0-36.0) g/dL RDW (12.1-15.1) % Plt Count (130-400) 10^3/c mm MPV (7.4-10.4) fL Neut % (Auto) % Lymph % (Auto) % [place] % (Auto) % Eos % (Auto) % Baso % (Auto) % Neut # (Auto) (1.8-7.7) 10^3/u L Lymph # (Auto) (0.8-4.8) 10^3/u L [place] # (Auto) (0.2-0.9) 10^3/u L Eos # (Auto) (0.0-0.8) 10^3/u L Baso # (Auto) (0.0-0.1) 10^3/u L Nucleated RBC % (a uto) % Nucleated RBCs # /100WBC D-Dimer (0-0.59) ug/mIFE U Sodium (136-145) mmol/L Potassium (3.5-5.1) mmol/L Chloride (98-107) mmol/L Carbon Dioxide (22-29) mmol/L Anion Gap (5-19) BUN (8-23) mg/dL Creatinine (0.7-1.2) mg/dL GFR Calculation Glucose (65-115) mg/dL Calculated Osmolal ity (285-295) mOsm/k g Lactic Acid 1.5 (0.5-2.2) mmol/L Calcium (8.5-10.5) mg/dL Total Bilirubin (0.15-1.2) mg/dL AST (0-40) U/L ALT (0-41) U/L Alkaline Phosphata se (40-130) IU/L Troponin T Baselin e 16 H (0-15) ng/L C-Reactive Protein (0.0-4.9) mg/L NT-Pro-B Natriuret Pep (0-450) pg/mL Total Protein (6.6-8.7) g/dL Albumin (3.5-5.2) g/dL Globulin (1.3-4.6) g/dL Urine Color Straw (Yellow) Urine Appearance Clear (CLEAR) Urine pH 5 (5-7) Ur Specific Gravit y 1.020 (1.005-1.030) Urine Protein Neg (Negative) Urine Glucose (UA) Norm (Normal) Urine Ketones Negative (Negative) Urine Blood Neg (Negative) Urine Nitrate Negative (Negative) Urine Bilirubin Neg (Negative) Urine Urobilinogen Norm (Negative) mg/dL Ur Leukocyte Tracy ase Negative (Negative) Influenza Type A A g (Negative) Influenza Type B A g (Negative) SARS-CoV-2 Ag (Rap id) (Negative) 10/16/20 10/16/20 Range/Units 12:20 12:20 WBC (4.0-10.0) 10^3/ uL RBC (4.1-5.3) 10^6/u L Hgb (11.7-16.6) g/dL Hct (42.0-52.0) % MCV (80-94) fL MCH (28.0-34.0) pg MCHC (30.0-36.0) g/dL RDW (12.1-15.1) % Plt Count (130-400) 10^3/c mm MPV (7.4-10.4) fL Neut % (Auto) % Lymph % (Auto) % [place] % (Auto) % Eos % (Auto) % Baso % (Auto) % Neut # (Auto) (1.8-7.7) 10^3/u L Lymph # (Auto) (0.8-4.8) 10^3/u L [place] # (Auto) (0.2-0.9) 10^3/u L Eos # (Auto) (0.0-0.8) 10^3/u L Baso # (Auto) (0.0-0.1) 10^3/u L Nucleated RBC % (a uto) % Nucleated RBCs # /100WBC D-Dimer (0-0.59) ug/mIFE U Sodium (136-145) mmol/L Potassium (3.5-5.1) mmol/L Chloride (98-107) mmol/L Carbon Dioxide (22-29) mmol/L Anion Gap (5-19) BUN (8-23) mg/dL Creatinine (0.7-1.2) mg/dL GFR Calculation Glucose (65-115) mg/dL Calculated Osmolal ity (285-295) mOsm/k g Lactic Acid (0.5-2.2) mmol/L Calcium (8.5-10.5) mg/dL Total Bilirubin (0.15-1.2) mg/dL AST (0-40) U/L ALT (0-41) U/L Alkaline Phosphata se (40-130) IU/L Troponin T Baselin e (0-15) ng/L C-Reactive Protein (0.0-4.9) mg/L NT-Pro-B Natriuret Pep (0-450) pg/mL Total Protein (6.6-8.7) g/dL Albumin (3.5-5.2) g/dL Globulin (1.3-4.6) g/dL Urine Color (Yellow) Urine Appearance (CLEAR) Urine pH (5-7) Ur Specific Gravit y (1.005-1.030) Urine Protein (Negative) Urine Glucose (UA) (Normal) Urine Ketones (Negative) Urine Blood (Negative) Urine Nitrate (Negative) Urine Bilirubin (Negative) Urine Urobilinogen (Negative) mg/dL Ur Leukocyte Tracy ase (Negative) Influenza Type A A g Negative (Negative) Influenza Type B A g Negative (Negative) SARS-CoV-2 Ag (Rap id) Positive H (Negative) EKG Data: EKG 1: Attestation: I personally reviewed and interpreted this EKG as follows: (1250, EKG was brought to me and shows a sinus rhythm with regular rate at 61 bpm, questionable ST elevation in leads V1, V2, V3 and V4. When compared to prior EKG done April 23, 2020 no significant changes were noted.) COVID Results: SARS-CoV-2 Antigen (Rapid) Positive (Negative) H 10/16/20 12:20 10/16/20 Discharge Plan Discharge Patient Disposition: Home Clinical Impression: COVID-19 Condition: Stable Prescriptions: No Action simvastatin 20 mg tablet 20 mg PO DAILY Qty: 7 RF: 0 aspirin [Adult Low Dose Aspirin] 81 mg tablet,delayed release (DR/EC) 81 mg PO DAILY RF: 0 cetirizine [Wal-Zyr (cetirizine)] 10 mg tablet 10 mg PO DAILY PRNRF: 0 enzalutamide 40 mg capsule 40 mg PO QID RF: 0 fluticasone propionate 50 mcg/actuation spray,suspension 1 spray intranasal DAILY RF: 0 furosemide 40 mg tablet 40 mg PO DAILY RF: 0 omega-3 fatty acids 1,000 mg capsule 1,000 mg PO DAILY RF: 0 oxybutynin chloride 10 mg tablet extended release 24hr 10 mg PO DAILY RF: 0 metoprolol succinate 50 mg tablet extended release 24 hr 50 mg PO DAILY Qty: 90 RF: 3 tamsulosin 0.4 mg capsule 0.4 mg PO DAILY RF: 0 Discharge Orders: Discharge ED (Routine); Ordered 10/16/20 Ordered By: John Sosa Referrals: Tati Cole [Primary Care Provider] - Discharge Diet: Usual diet Discharge Activity: Increase activity as tolerated Patient Instructions: Viral Syndrome (ED), Opioid Safety Activity Restrictions/Additional Instructions: Drink plenty of fluids. Healthy diet and exercise. Frequent rest episodes. Use acetaminophen and ibuprofen as needed for pain. Follow-up with primary care for other recommendations and treatment. Return to the ER for new concerns or worsening symptoms. Coding Level of Care Code ED Cell Attendant Helper for Markel Fwd Exam Comprehensive
[2020-10-16 12:22] VITALS: BP 165/88; PULSE 60; RESP 13; O2SAT 95
[2020-10-16 12:24] VITALS: O2SAT 95
[2020-10-16 12:34] LABS: Add Urine Microscopic? NO; Charge for UA Resulting for Rev
[2020-10-16 12:41] LABS: Basophils % 0.7 %; Eosinophils # 0.1 10^3/uL (0.0-0.8); Eosinophils % 2.3 %; Hematocrit 45.1 % (42.0-52.0); Hemoglobin 14.7 g/dL (11.7-16.6); Lymphocytes # 1.7 10^3/uL (0.8-4.8); Lymphocytes % 39.8 %; Mean Corpuscular HGB Conc 32.6 g/dL (30.0-36.0); Mean Corpuscular Hemoglobin 30.6 pg (28.0-34.0); Mean Platelet Volume 9.5 fL (7.4-10.4); Monocytes # 0.4 10^3/uL (0.2-0.9); Monocytes % 8.9 %; Neutrophils # 2.01 10^3/uL (1.8-7.7); Neutrophils % 47.1 %; Nucleated Red Blood Cells % 0 %; Platelet Count 174 10^3/cmm (130-400); Red Cell Distribution Width 14.7 % (12.1-15.1); White Blood Count 4.3 10^3/uL (4.0-10.0)
[2020-10-16 12:49] LABS: Bilirubin Urine Neg (Negative); Blood Urine Neg (Negative); Glucose Urine UA Norm (Normal); Ketones Urine Negative (Negative); Leukocyte Esterase Urine Negative (Negative); Nitrate Urine Negative (Negative); Protein Urine Neg (Negative); Urine Appearance Clear (CLEAR); Urine Color Straw (Yellow); Urobilinogen Urine Norm (Negative); pH Urine 5 (5-7)
[2020-10-16 12:55] LABS: Lactic Sepsis W/Reflex 1.5 mmol/L (0.5-2.2); Troponin(5th) Baseline 16 ng/L (0-15)
[2020-10-16 12:59] LABS: Alanine Aminotransferase 23 U/L (0-41); Albumin Level 4.2 g/dL (3.5-5.2); Alkaline Phosphatase 68 IU/L (40-130); Anion Gap 14.2 (5-19); Aspartate Amino Transferase 21 U/L (0-40); Blood Urea Nitrogen 13 mg/dL (8-23); C Reactive Protein 14.9 mg/L (0.0-4.9); Calcium 8.6 mg/dL (8.5-10.5); Carbon Dioxide 26 mmol/L (22-29); Chloride 101 mmol/L (98-107); Glucose 101 mg/dL (65-115); NT Pro B Type Natriuretic Pept 76 pg/mL (0-450); Osmolality Calculated 284 mOsm/kg (285-295); Potassium 4.2 mmol/L (3.5-5.1); Sodium 137 mmol/L (136-145); Total Bilirubin 0.4 mg/dL (0.15-1.2); Total Protein 7.2 g/dL (6.6-8.7)
[2020-10-16 13:21] VITALS: BP 164/89; PULSE 61; RESP 14; O2SAT 94
[2020-10-16 13:23] LABS: Influenza A by IFA Negative (Negative); Influenza B by IFA Negative (Negative); SARS Covid-2 Antigen Positive (Negative)
--- NOTE | 2020-10-16 13:24 | ECG_ITS ---
[facility] ED Test Date: 2020-10-16 Pat Name: Albaro Lerma Department: Room: Gender: Male Emt B: : 1945 Requested By: John Villarreal Order Number: [id number] Moran MD: Margot Ingram M.D. Measurements Intervals [place] Rate: 77 P: 37 [place]: 144 QRS: -21 QRSD: 92 T: -16 QT: 402 QTc: 455 Interpretive Statements SINUS RHYTHM BORDERLINE LEFT AXIS DEVIATION [QRS AXIS < -20] MODERATE VOLTAGE CRITERIA FOR LVH, CONSIDER NORMAL VARIANT [MEETS CRITERIA IN ONE OF: R(aVL), S(V1), R(V5), R(V5/V6)+S(V1)] NONSPECIFIC T-WAVE ABNORMALITY Compared to ECG 10/16/2020 12:37:28 T-wave abnormality now present Intraventricular conduction delay no longer present Myocardial infarct finding no longer present Electronically Signed On 10-22-2020 12:27:40 CDT by Margot Ingram M.D. [id number]
[2020-10-16 13:27] LABS: D Dimer 0.45 ug/mIFEU (0-0.59)
[2020-10-16 13:59] VITALS: BP 164/89; PULSE 61; RESP 20; O2SAT 96
[2020-10-16 14:09] VITALS: BP 150/76; PULSE 62; RESP 17; O2SAT 95
== END 2020-10-16 14:11 | disposition home or self-care (01) ==
PROVIDERS: Emergency Provider Nurse Practitioner Family; PCP Family Medicine
DX: U07.1 COVID-19 (principal); Z79.82 Long term (current) use of aspirin; I25.10 Atherosclerotic heart disease of native coronary artery without angina pectoris; I10 Essential (primary) hypertension; E78.5 Hyperlipidemia, unspecified; Z85.46 Personal history of malignant neoplasm of prostate; Z95.1 Presence of aortocoronary bypass graft
CPT/HCPCS: 71045; 80053; 81003; 83605; 83880; 84484; 85025; 85378; 86140; 87426; 87804; 93005; 99284

== ENCOUNTER 2021-04-16 11:57 | Inpatient (IN) | payer OTHER, MEDICARE, SELFPAY ==
[2021-04-16] VITALS (10 sets, daily range): BP systolic 135–172; BP diastolic 74–84; PULSE 49–59; RESP 16–24; TEMP 36.2–36.7; O2SAT 93–98; BMI 33.6
--- NOTE | 2021-04-16 11:59 | W.ED.CHESTPA ---
HPI - Chest Pain General: Chief Complaint: Chest Pain Stated Complaint: CP Time Seen by Provider: 04/16/21 11:59 History of Present Illness: HPI narrative: Mr. Lerma is a 75-year-old gentleman with significant past medical history of hypertension, hyperlipidemia, history of CABG x3 presents emergency department due to chest discomfort and shortness of breath. Symptom onset was approximately 7 AM this morning. He had midsternal dull mild to moderate intensity chest discomfort without significant radiation. At times there were bumps of worsening pain mostly exertional in the left anterior chest. There was associated shortness of breath which has been progressive. No other typical cardiac features. EMS was called and he received full dose aspirin, nitroglycerin x2 and morphine with mild improvement in symptoms. Denies frequent history of chest pain. No infectious symptoms. No other specific changes in health, exacerbating, relieving factors identified. Review of Systems General: Reports: 10 or more systems reviewed and unremarkable except in HPI and below PFSH ED PFSH: Medical History CAD (coronary artery disease) COVID-19 Essential hypertension Well controlled continue medicine Hx of atherosclerotic cardiovascular disease Hx of chest pain Hyperlipemia Prostate cancer Surgical History Hx of CABG Social History Smoking and tobacco status: never smoked Alcohol intake: former History of recent travel: No Current gender identity: Male Physical Exam Narrative: EXAM NARRATIVE: GENERAL/CONSTITUTIONAL - well-appearing. No acute distress. Obese Eyes - PERRL, no conjunctival injection ENMT - Atraumatic external nose and ears. Moist mucous membranes NECK - supple. trachea midline CARDIOVASCULAR - regular rate and rhythm. Peripheral pulses 2+ and equal RESPIRATORY -clear to auscultation bilaterally. ABDOMEN/GI - Nontender/Nondistended. MSK - Extremities without obvious deformity or tenderness to palpation SKIN - Warm, Dry NEURO - alert and appropriately oriented. Moves all extremities equally. PSYCH - Appropriate mood and affect Course ED course: - Patient was seen and evaluated by me at bedside. Patient initially STEMI activated by EMS however found to have left bundle branch block, no acute Expeller Operator intervention at this time proceed with normal chest pain work-up per explosives mixer operator. - Patient placed on cardiac monitors, IV access obtained - Initial evaluation notable for no acute distress, nontoxic appearance. - Labs notable for no acute hematologic or metabolic abnormality to explain patient's symptoms. Delta troponin negative. - Imaging notable for no acute abnormality noted on ED read chest x-ray. - Upon serial reexamination after treatment the patient was similar with mild continued intermittent chest discomfort - Based on patient history, evaluation, labs, and imaging as interpreted the most likely cause of the patient's condition is chest pain of uncertain etiology. Given typical features I discussed the case with cardiology again and they recommended medicine admission for planned cardiac cath - The results of ED evaluation were discussed with the patient including plan for admission due to requirement for level of care not available if discharged to prevent significant worsening/deterioration. -Hospitalist service contacted and agreed admit the patient. - Patient was admitted without further deterioration or significant events. Vital Signs: Vital signs: Vital Signs Temperature 97.5 F L 04/18/21 19:00 Pulse Rate 61 04/18/21 19:00 Respiratory Rate 24 H 04/18/21 19:00 Blood Pressure 170/83 04/18/21 19:00 Pulse Oximetry 94 04/18/21 19:00 MDM - Chest Pain Medical Records: Attestation: I reviewed the patient's medical records. Lab Data: Attestation: I reviewed the patient's lab results. Labs: Lab Results 04/16/21 04/16/21 04/16/21 12:04 12:04 12:04 WBC RBC Hgb Hct MCV MCH MCHC RDW Plt Count MPV Neut % (Auto) Lymph % (Auto) [place] % (Auto) Eos % (Auto) Baso % (Auto) Neut # (Auto) Lymph # (Auto) [place] # (Auto) Eos # (Auto) Baso # (Auto) Nucleated RBC % (a uto) Nucleated RBCs # PT INR APTT D-Dimer 0.43 ug/mIFEU ug/ mIFEU (0-0.59) Sodium Potassium Chloride Carbon Dioxide Anion Gap BUN Creatinine GFR Calculation Glucose Calculated Osmolal ity Calcium Iron TIBC % Saturation Unsat Iron Binding Total Bilirubin AST ALT Alkaline Phosphata se Troponin T Baselin e Troponin T 120 Min yvonne Delta Troponin T NT-Pro-B Natriuret Pep Total Protein Albumin Globulin Procalcitonin TSH 7.59 uIU/mL H uIU /mL (0.27-4.20) Free T4 1.24 ng/dL ng/dL (0.82-1.77) SARS-CoV-2 Ag (Rap id) 04/16/21 04/16/21 04/16/21 12:04 12:05 12:05 WBC 9.5 10^3/uL 10^3/ uL (4.0-10.0) RBC 4.73 10^6/uL 10^6 /uL (4.1-5.3) Hgb 14.8 g/dL g/dL (11.7-16.6) Hct 45.1 % % (42.0-52.0) MCV 95.3 fl H fl (80-94) MCH 31.3 pg pg (28.0-34.0) MCHC 32.8 g/dL g/dL (30.0-36.0) RDW 14.6 % % (12.1-15.1) Plt Count 217 10^3/cmm 10^3 /cmm (130-400) MPV 8.9 fL fL (7.4-10.4) Neut % (Auto) 38.3 % % Lymph % (Auto) 49.9 % % [place] % (Auto) 7.0 % % Eos % (Auto) 3.6 % % Baso % (Auto) 0.6 % % Neut # (Auto) 3.65 10^3/uL 10^3 /uL (1.8-7.7) Lymph # (Auto) 4.8 10^3/uL 10^3/ uL (0.8-4.8) [place] # (Auto) 0.7 10^3/uL 10^3/ uL (0.2-0.9) Eos # (Auto) 0.3 10^3/uL 10^3/ uL (0.0-0.8) Baso # (Auto) 0.1 10^3/uL 10^3/ uL (0.0-0.1) Nucleated RBC % (a uto) 0 % % Nucleated RBCs # 0.0 /100WBC /100W BC PT 13.10 SECONDS SEC ONDS (12.1-14.9) INR 0.96 (0.8-1.2) APTT 29.9 SECONDS SECO NDS (23.9-36.7) D-Dimer Sodium Potassium Chloride Carbon Dioxide Anion Gap BUN Creatinine GFR Calculation Glucose Calculated Osmolal ity Calcium Iron 58 ug/dL L ug/dL (59-158) TIBC 341 mcg/dl mcg/dl % Saturation 17.0 % L % (20-50) Unsat Iron Binding 283 ug/dL ug/dL (112-347) Total Bilirubin AST ALT Alkaline Phosphata se Troponin T Baselin e Troponin T 120 Min yvonne Delta Troponin T NT-Pro-B Natriuret Pep 121 pg/mL pg/mL (0-450) Total Protein Albumin Globulin Procalcitonin 0.05 ng/mL ng/mL (0-0.5) TSH Free T4 SARS-CoV-2 Ag (Rap id) 04/16/21 04/16/21 04/16/21 12:05 12:05 13:15 WBC RBC Hgb Hct MCV MCH MCHC RDW Plt Count MPV Neut % (Auto) Lymph % (Auto) [place] % (Auto) Eos % (Auto) Baso % (Auto) Neut # (Auto) Lymph # (Auto) [place] # (Auto) Eos # (Auto) Baso # (Auto) Nucleated RBC % (a uto) Nucleated RBCs # PT INR APTT D-Dimer Sodium 140 mmol/L mmol/L (136-145) Potassium 4.1 mmol/L mmol/L (3.5-5.1) Chloride 103 mmol/L mmol/L (98-107) Carbon Dioxide 24 mmol/L mmol/L (22-29) Anion Gap 17.1 (5-19) BUN 17 mg/dL mg/dL (8-23) Creatinine 0.7 mg/dL mg/dL (0.7-1.2) GFR Calculation Not Reportable Glucose 111 mg/dL mg/dL (65-115) Calculated Osmolal ity 292 mOsm/kg mOsm/ kg (285-295) Calcium 9.8 mg/dL mg/dL (8.5-10.5) Iron TIBC % Saturation Unsat Iron Binding Total Bilirubin 0.3 mg/dL mg/dL (0.15-1.2) AST 21 U/L U/L (0-40) ALT 22 U/L U/L (0-41) Alkaline Phosphata se 80 IU/L IU/L (40-130) Troponin T Baselin e 13 ng/L ng/L (0-15) Troponin T 120 Min yvonne Delta Troponin T NT-Pro-B Natriuret Pep 118 pg/mL pg/mL (0-450) Total Protein 6.9 g/dL g/dL (6.6-8.7) Albumin 4.1 g/dL g/dL (3.5-5.2) Globulin 2.8 g/dL g/dL (1.3-4.6) Procalcitonin TSH Free T4 SARS-CoV-2 Ag (Rap id) Negative (Negative) 04/16/21 14:55 WBC RBC Hgb Hct MCV MCH MCHC RDW Plt Count MPV Neut % (Auto) Lymph % (Auto) [place] % (Auto) Eos % (Auto) Baso % (Auto) Neut # (Auto) Lymph # (Auto) [place] # (Auto) Eos # (Auto) Baso # (Auto) Nucleated RBC % (a uto) Nucleated RBCs # PT INR APTT D-Dimer Sodium Potassium Chloride Carbon Dioxide Anion Gap BUN Creatinine GFR Calculation Glucose Calculated Osmolal ity Calcium Iron TIBC % Saturation Unsat Iron Binding Total Bilirubin AST ALT Alkaline Phosphata se Troponin T Baselin e Troponin T 120 Min yvonne 14.02 ng/L ng/L (0-15) Delta Troponin T 1.02 ABS# ABS# (0-10) NT-Pro-B Natriuret Pep Total Protein Albumin Globulin Procalcitonin TSH Free T4 SARS-CoV-2 Ag (Rap id) EKG Data^: EKG 1: Attestation: I personally reviewed and interpreted this EKG as follows: EKG interpretation date: 04/16/21 EKG interpretation time: 12:04 Interpretation: Twelve-lead EKG shows a regular sinus rhythm at a rate of 55. SD interval 180, QRS duration 133, QTc 413. Normal axis. Interpretation: Sinus rhythm. Left bundle branch block. EKG 2: Attestation: I personally reviewed and interpreted this EKG as follows: EKG interpretation date: 04/16/21 EKG interpretation time: 13:28 Interpretation: Twelve-lead EKG shows a regular rhythm at a rate of 53. SD interval of 184, QRS duration 137, QTc 415. Normal axis. Interpretation: Sinus rhythm. Left bundle branch block. Similar to prior. Discharge Plan Discharge Patient Disposition: Admitted As Inpatient Admit Provider: Tye Caballero Clinical Impression: Chest pain Condition: Stable Coding Level of Care Code ED Refining Machine Operator for Markel Newman
--- NOTE | 2021-04-16 12:02 | ECG_ITS ---
[facility] Test Date: 2021-04-16 Pat Name: Albaro Lerma Department: Room: Gender: Male Utility Person: : 1945 Requested By: Daniel Shook Order Number: [id number] Dean MD: CEE HERNANDEZ Measurements Intervals [place] Rate: 55 P: 35 [place]: 180 QRS: 23 QRSD: 133 T: 123 QT: 428 QTc: 413 Interpretive Statements SINUS BRADYCARDIA INTRAVENTRICULAR CONDUCTION DELAY [130+ ms QRS DURATION] ANTEROSEPTAL MYOCARDIAL INFARCTION , PROBABLY old Compared to ECG 10/16/2020 14:55:09 Intraventricular conduction delay now present Myocardial infarct finding now present Electronically Signed On 04-16-2021 21:56:17 CDT by CEE HERNANDEZ [email or web address]/store/NU/[id number] f
--- NOTE | 2021-04-16 12:02 | XRR_ITS ---
PROCEDURE INFORMATION: Exam: XR Chest Exam date and time: 04/16/2021 12:02 PM Age: 75 years old Clinical indication: Pain; Angina pectoris; Prior surgery; Additional info: Chest pain TECHNIQUE: Imaging protocol: XR of the chest. Views: 1 view. Total images: 1 COMPARISON: CR XR chest 1V portable [id number] 10/16/2020 11:39 AM FINDINGS: Lungs: Trace atelectasis or scar noted in the left lung base. Pleural spaces: Unremarkable. No pleural effusion. No pneumothorax. Heart/Mediastinum: Heart size is stable when compared to the prior exam. Bones/joints: Osseous structures are unchanged from the prior exam. Other findings: Stable postsurgical changes. XR/XR chest 1V portable [id number] IMPRESSION: Trace atelectasis or scar noted in the left lung base. Radiation Dose CTDIVOL = (mGy): DLP = (mGy-cm)
[2021-04-16 12:12] LABS: Basophils # 0.1 10^3/uL (0.0-0.1); Basophils % 0.6 %; Eosinophils # 0.3 10^3/uL (0.0-0.8); Eosinophils % 3.6 %; Hematocrit 45.1 % (42.0-52.0); Hemoglobin 14.8 g/dL (11.7-16.6); Lymphocytes # 4.8 10^3/uL (0.8-4.8); Lymphocytes % 49.9 %; Mean Corpuscular HGB Conc 32.8 g/dL (30.0-36.0); Mean Corpuscular Hemoglobin 31.3 pg (28.0-34.0); Mean Corpuscular Volume 95.3 fl (80-94); Mean Platelet Volume 8.9 fL (7.4-10.4); Monocytes # 0.7 10^3/uL (0.2-0.9); Neutrophils # 3.65 10^3/uL (1.8-7.7); Neutrophils % 38.3 %; Nucleated Red Blood Cells % 0 %; Platelet Count 217 10^3/cmm (130-400); Red Blood Count 4.73 10^6/uL (4.1-5.3); Red Cell Distribution Width 14.6 % (12.1-15.1); White Blood Count 9.5 10^3/uL (4.0-10.0)
--- NOTE | 2021-04-16 12:16 | PM.CONSULT ---
Providers/Reason For Consult Consulting Physician/Specialty*: Javier Zepeda MD/Cardiology Reason for Consult*: Chest pain Requesting Physician: Dr Shook Attending Physician: Dr Caballero Primary Care Provider: Tati Cole History of Present Illness History of Present Illness Albaro Lerma is a 75 year old male with past medical history of coronary artery disease status post CABG performed in [place] about 4 years ago who follows with Dr. Looney has presented with chest pain symptoms for 4-5 hours. According to patient he started noticing chest pain at 7 AM. It has been on and off. He also feels short of breath. STEMI was activated by EMS based on ST changes noted in V1 to V3. EKG performed in the ER does not show acute ST elevation MT. STEMI alert was canceled. Patient is currently chest pain-free however gets on and off discomfort. Initial troponin is normal and is 13 Review of Systems Narrative: CONSTITUTIONAL: No fever chills weight loss or gain or night sweats. [] HEENT: Normocephalic, atraumatic.[] RESPIRATORY: No cough, sputum, hemoptysis or wheezing.[] CARDIOVASCULAR: No shortness of breath, chest pain, PND, orthopnea, lower extremity edema, presyncope or syncope. [] GI: no nausea vomiting diarrhea. [] SENIOR PHARMACY TECHNICIAN: No numbness, tingling, weakness or loss of function in any part of the body. [] MUSCULOSKELETAL: No knee or joint pain or rashes. [] Meds/Allergies Home Medications and Allergies Home Medications Medication Instructions Recorded Confirmed Last Taken Type tamsulosin 0.4 mg capsule 0.4 mg PO BEDTIME 07/26/19 04/16/21 08/28/19 History aspirin 81 mg tablet,delayed 81 mg PO BEDTIME 04/25/20 04/16/21 04/15/21 History release enzalutamide 40 mg capsule 80 mg PO BID cap 04/25/20 04/16/21 04/16/21 07:00 History fluticasone propionate 50 1 - 2 spray INTRANASAL DAILY 04/25/20 04/16/21 04/16/21 History mcg/actuation nasal spray,suspension omega-3 fatty acids 1,000 mg 1,000 mg PO BEDTIME 04/25/20 04/16/21 Unknown History capsule oxybutynin chloride 10 mg 10 mg PO BEDTIME 04/25/20 04/16/21 Unknown History tablet,extended release 24 hr Collagen Powder See Rx Instructions .ROUTE .COMPLEX 04/16/21 04/16/21 Unknown History calcium 1 tab PO DAILY 04/16/21 04/16/21 Unknown History cholecalciferol (vitamin D3) 25 mcg PO DAILY 04/16/21 04/16/21 Unknown History [Vitamin D3] metoprolol succinate 50 mg PO BEDTIME 04/16/21 04/16/21 Unknown History simvastatin 20 mg PO BEDTIME 04/16/21 04/16/21 Unknown History Allergies Allergy/AdvReac Type Severity Reaction Status Date / Time No Known Allergies Allergy Verified 10/16/20 09:49 PFSH Acute PFSH: Medical History CAD (coronary artery disease) COVID-19 Essential hypertension Well controlled continue medicine Hx of atherosclerotic cardiovascular disease Hx of chest pain Hyperlipemia Prostate cancer Surgical History Hx of CABG Social History Smoking and tobacco status: never smoked Alcohol intake: former History of recent travel: No Current gender identity: Male Vitals/I&O/Wt Last Vital Signs Temp 98.0 F 04/16/21 12:00 Pulse 58 L 04/16/21 12:00 Resp 24 H 04/16/21 12:00 BP 160/77 04/16/21 12:00 Pulse Ox 98 04/16/21 12:00 Weight last 48 hrs Weight 215 lb Physical Exam Narrative: EXAM NARRATIVE: GENERAL: Patient is alert, awake and oriented x3. [] NECK: No jugular vein distension. [] HEENT: No cyanosis. No icterus. No pallor. [] HEART: Regular S1 and S2. No murmur, rub or gallop. [] LUNGS: Clear to auscultate bilaterally. [] ABDOMEN: Soft, nontender and nondistended. Positive bowel sounds. No guarding, rebound or tenderness. [] CENTRAL NERVOUS SYSTEM: Grossly nonfocal. [] EXTREMITIES: Lower extremities with 1+ edema bilaterally. Pulses palpable in the lower extremities, both dorsalis pedis and posterior tibial. [] A&P Assessment and plan (1) Essential hypertension: Status: Acute (2) Chest pain: Status: Acute (3) Hyperlipemia: Status: Acute Qualifiers: Hyperlipidemia type: other hyperlipidemia Qualified Code(s): E78.49 - Other hyperlipidemia (4) Bradycardia: Status: Acute (5) Coronary artery disease: Status: Acute Patient has presented with typical chest pain symptoms. Symptoms are concerning for unstable angina. He has significant coronary artery disease history with prior CABG. Continue trending troponins Continue aspirin and statin. If troponins increase significantly, start anticoagulation. Secondary to his symptoms concerning for unstable angina, will proceed with coronary angiogram tomorrow. Keep patient n.p.o. past midnight. Order echocardiogram Thank you for involving us with care of this patient. We will continue to follow. Please call with questions. Coding Level of Care Code Acute Linux Unix Administrator for Markel Newman Diagnoses Essential hypertension I10 Chest pain R07.9 Hyperlipemia E78.49 Hyperlipidemia type: other hyperlipidemia Bradycardia R00.1 Coronary artery disease I25.10
[2021-04-16 12:24] LABS: INR 0.96 (0.8-1.2); Partial Thromboplastin Time 29.9 SECONDS (23.9-36.7)
[2021-04-16 12:33] LABS: Troponin(5th) Baseline 13 ng/L (0-15)
[2021-04-16 12:42] LABS: Alanine Aminotransferase 22 U/L (0-41); Albumin Level 4.1 g/dL (3.5-5.2); Alkaline Phosphatase 80 IU/L (40-130); Aspartate Amino Transferase 21 U/L (0-40); Blood Urea Nitrogen 17 mg/dL (8-23); Calcium 9.8 mg/dL (8.5-10.5); Carbon Dioxide 24 mmol/L (22-29); Chloride 103 mmol/L (98-107); Globulin 2.8 g/dL (1.3-4.6); Glucose 111 mg/dL (65-115); NT Pro B Type Natriuretic Pept 118 pg/mL (0-450); Osmolality Calculated 292 mOsm/kg (285-295); Sodium 140 mmol/L (136-145); Total Bilirubin 0.3 mg/dL (0.15-1.2); Total Protein 6.9 g/dL (6.6-8.7)
[2021-04-16 13:16] LABS: Anion Gap 17.1 (5-19); Potassium 4.1 mmol/L (3.5-5.1)
[2021-04-16 13:55] LABS: Thyroid Stimulating Hormone 7.59 uIU/mL (0.27-4.20)
--- NOTE | 2021-04-16 14:02 | ECG_ITS ---
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
[2021-04-16 14:03] LABS: D Dimer 0.43 ug/mIFEU (0-0.59)
[2021-04-16 14:21] LABS: SARS Covid-2 Antigen Negative (Negative)
[2021-04-16 14:47] LABS: Free T4 Free Thyroxine 1.24 ng/dL (0.82-1.77)
[2021-04-16 15:22] LABS: Troponin 5 2HR 14.02 ng/L (0-15); Troponin 5 2HR Delta 1.02 ABS# (0-10)
--- NOTE | 2021-04-16 16:11 | PM.HP ---
Providers/Chief Complaint Primary Care Provider: Tati Cole Chief Complaint: CP History of Present Illness Albaro Lerma is a 75 year old male with past medical history of hypertension, CAD post CABG in May 2017, recent COVID-19 in October 2020, hyperlipidemia who sees Dr. Looney as an outpatient presented today with EMS. He states that when he woke up he had left sided sharp, throbbing sensation which was limited for around 5 mins. Associated with dizziness but no N/V, LOC. Symptoms were self limiting so he ignored them. He had similar symptom later in the day so EMS was called. Their were concerns for new LBBB so STEMI alert was called. Cardiology was consulted and on review STEMI alert was consulted. On exam, patient is chest pain free. Denies any N/V, dizziness, palpitaions. Review of Systems General: Reports: 10 or more systems reviewed and unremarkable except in HPI and below Const: Denies: fever(s), chills, body aches, change in appetite, change in weight, malaise, night sweats, diaphoresis, change in sleep pattern, daytime sleepiness or snoring Eyes: Denies: change in vision, blurry vision, photophobia, eye discomfort or eye discharge ENMT: Denies: throat pain, enlarged tonsils, hoarseness, mouth pain, oral sores, dry mouth, tinnitus, nasal congestion or post nasal drip Card: Denies: chest pain, palpitations, irregular heart rhythm, edema, swelling of feet/ankles, lightheadedness, syncope, pre-syncope, dyspnea on exertion, orthopnea, leg pain with exertion or acrocyanosis Resp: Denies: dyspnea, productive cough, non-productive cough, wheezing, stridor, pain on inspiration, change in phlegm color, hemoptysis or chest congestion GI: Denies: abdominal pain, nausea, vomiting, hematemesis, coffee ground emesis, dysphagia, heartburn, diarrhea, constipation, bloating, GI cramping, change in bowel habits, pain on defecation, hematochezia or melena : Denies: flank pain, difficulty urinating, dysuria, urinary frequency, urinary urgency, urinary hesitancy, urinary dribbling, difficulty starting urination, change in urine stream, nocturia or hematuria Musc: Denies: neck pain, back pain, extremity pain, joint pain, joint swelling, joint redness, joint stiffness or limited range of motion Neuro: Denies: headache(s), numbness in extremities, weakness in extremities, sensory changes, lack of coordination, difficulty walking, frequent falls, dizziness, vertigo, confusion, Slurred speech present, difficulty communicating thoughts or seizure-like activity Psych: Denies: anxiety, depression, mood swings, panic attacks, hopelessness or irritability Endo: Denies: polyuria, polydipsia, tired all the time, cold intolerance, excessive sweating, flushing or heat intolerance Geovany/Lymph: Denies: easy bruising or easy bleeding All/Imm: Denies: tongue swelling, facial swelling or acute wheezing Medications/Allergies Home Medications Medication Instructions Recorded Confirmed Last Taken Type tamsulosin 0.4 mg capsule 0.4 mg PO BEDTIME 07/26/19 04/16/21 08/28/19 History aspirin 81 mg tablet,delayed 81 mg PO BEDTIME 04/25/20 04/16/21 04/15/21 History release enzalutamide 40 mg capsule 80 mg PO BID cap 04/25/20 04/16/21 04/16/21 07:00 History fluticasone propionate 50 1 - 2 spray INTRANASAL DAILY 04/25/20 04/16/21 04/16/21 History mcg/actuation nasal spray,suspension omega-3 fatty acids 1,000 mg 1,000 mg PO BEDTIME 04/25/20 04/16/21 Unknown History capsule oxybutynin chloride 10 mg 10 mg PO BEDTIME 04/25/20 04/16/21 Unknown History tablet,extended release 24 hr Collagen Powder See Rx Instructions .ROUTE .COMPLEX 04/16/21 04/16/21 Unknown History calcium 1 tab PO DAILY 04/16/21 04/16/21 Unknown History cholecalciferol (vitamin D3) 25 mcg PO DAILY 04/16/21 04/16/21 Unknown History [Vitamin D3] metoprolol succinate 50 mg PO BEDTIME 04/16/21 04/16/21 Unknown History simvastatin 20 mg PO BEDTIME 04/16/21 04/16/21 Unknown History Allergies Allergy/AdvReac Type Severity Reaction Status Date / Time No Known Allergies Allergy Verified 10/16/20 09:49 PFSH Acute PFSH: Medical History CAD (coronary artery disease) COVID-19 Essential hypertension Well controlled continue medicine Hx of atherosclerotic cardiovascular disease Hx of chest pain Hyperlipemia Prostate cancer Surgical History Hx of CABG Social History Smoking and tobacco status: never smoked Alcohol intake: former History of recent travel: No Current gender identity: Male Vitals/I&O/Wt Last Vital Signs Temp 98.0 F 04/16/21 13:19 Pulse 51 L 04/16/21 14:15 Resp 18 04/16/21 14:15 BP 172/78 04/16/21 14:15 Pulse Ox 94 04/16/21 14:15 Weight last 48 hrs Weight 97.522 kg Physical Exam Narrative: EXAM NARRATIVE: General: No acute distress, AO x3 HEENT: PERRLA, pupils bilaterally equal and reactive Chest: Normal vesicular breath sounds, no added sounds, equal good air entry bilaterally CVS: S1-S2 regular, no murmurs, no tachycardia, no gallops, no rubs Abdomen: Soft, nontender, no organomegaly, bowel sounds present Neuro: No focal deficits, no facial deformity, AO x3, power 5/5 in all limbs Data : 04/16/21 12:05 04/16/21 12:05 Other Labs: Laboratory Results WBC 9.5 10^3/uL (4.0-10.0) 04/16/21 12:05 RBC 4.73 10^6/uL (4.1-5.3) 04/16/21 12:05 Hgb 14.8 g/dL (11.7-16.6) 04/16/21 12:05 Hct 45.1 % (42.0-52.0) 04/16/21 12:05 MCV 95.3 fl (80-94) H 04/16/21 12:05 MCH 31.3 pg (28.0-34.0) 04/16/21 12:05 MCHC 32.8 g/dL (30.0-36.0) 04/16/21 12:05 RDW 14.6 % (12.1-15.1) 04/16/21 12:05 Plt Count 217 10^3/cmm (130-400) 04/16/21 12:05 MPV 8.9 fL (7.4-10.4) 04/16/21 12:05 Neut % (Auto) 38.3 % 04/16/21 12:05 Lymph % (Auto) 49.9 % 04/16/21 12:05 Ritchie % (Auto) 7.0 % 04/16/21 12:05 Eos % (Auto) 3.6 % 04/16/21 12:05 Baso % (Auto) 0.6 % 04/16/21 12:05 Neut # (Auto) 3.65 10^3/uL (1.8-7.7) 04/16/21 12:05 Lymph # (Auto) 4.8 10^3/uL (0.8-4.8) 04/16/21 12:05 Ritchie # (Auto) 0.7 10^3/uL (0.2-0.9) 04/16/21 12:05 Eos # (Auto) 0.3 10^3/uL (0.0-0.8) 04/16/21 12:05 Baso # (Auto) 0.1 10^3/uL (0.0-0.1) 04/16/21 12:05 Nucleated RBC % (auto) 0 % 04/16/21 12:05 Nucleated RBCs # 0.0 /100WBC 04/16/21 12:05 PT 13.10 SECONDS (12.1-14.9) 04/16/21 12:05 INR 0.96 (0.8-1.2) 04/16/21 12:05 APTT 29.9 SECONDS (23.9-36.7) 04/16/21 12:05 D-Dimer 0.43 ug/mIFEU (0-0.59) 04/16/21 12:04 Sodium 140 mmol/L (136-145) 04/16/21 12:05 Potassium 4.1 mmol/L (3.5-5.1) 04/16/21 12:05 Chloride 103 mmol/L (98-107) 04/16/21 12:05 Carbon Dioxide 24 mmol/L (22-29) 04/16/21 12:05 Anion Gap 17.1 (5-19) 04/16/21 12:05 BUN 17 mg/dL (8-23) 04/16/21 12:05 Creatinine 0.7 mg/dL (0.7-1.2) 04/16/21 12:05 GFR Calculation Not Reportable 04/16/21 12:05 Glucose 111 mg/dL (65-115) 04/16/21 12:05 Calculated Osmolality 292 mOsm/kg (285-295) 04/16/21 12:05 Calcium 9.8 mg/dL (8.5-10.5) 04/16/21 12:05 Total Bilirubin 0.3 mg/dL (0.15-1.2) 04/16/21 12:05 AST 21 U/L (0-40) 04/16/21 12:05 ALT 22 U/L (0-41) 04/16/21 12:05 Alkaline Phosphatase 80 IU/L (40-130) 04/16/21 12:05 Troponin T Baseline 13 ng/L (0-15) 04/16/21 12:05 Troponin T 120 Minute 14.02 ng/L (0-15) 04/16/21 14:55 Delta Troponin T 1.02 ABS# (0-10) 04/16/21 14:55 NT-Pro-B Natriuret Pep 118 pg/mL (0-450) 04/16/21 12:05 Total Protein 6.9 g/dL (6.6-8.7) 04/16/21 12:05 Albumin 4.1 g/dL (3.5-5.2) 04/16/21 12:05 Globulin 2.8 g/dL (1.3-4.6) 04/16/21 12:05 TSH 7.59 uIU/mL (0.27-4.20) H 04/16/21 12:04 Free T4 1.24 ng/dL (0.82-1.77) 04/16/21 12:04 SARS-CoV-2 Ag (Rapid) Negative (Negative) 04/16/21 13:15 Impressions Chest X-Ray 04/16/21 12:02 IMPRESSION: Trace atelectasis or scar noted in the left lung base. Radiation Dose CTDIVOL = (mGy): DLP = (mGy-cm) A&P Assessment and plan (1) Unstable angina: Status: Acute (2) Hx of CABG: Status: Acute (3) Essential hypertension: Status: Acute (4) Bradycardia: Status: Acute Additional A&P Information Unstable Angina: ASA, statin. Cycle tropinin. If elevated will start on full dose Lovenox. Check A1c, lipid panel, Echo Case d/w cardiology. Plan for cath in AM Bradycardia: Telemetry Decrease Metoprolol. Change to Metoprolol to lopressor 25 mg BID HTN: Goal less than 140/90 mmhg Start on losartan 50 mg PO QD Check TIBC, TSH FC Lovenox 40 mg SQ QD Famotidine for PUD PPx Attestations Medical Necessity Statement*: For more than 2 MN for UA and possible cardiac angiogram Time Spent in Patient Care: Greater than 35 minutes (>than 50% of time spent in counselling and/or direct pt care on unit). Coding Level of Care Code Acute Skidder Lever Operator for Markel Fwd Diagnoses Unstable angina I20.0 Hx of CABG Z95.1 Essential hypertension I10 Bradycardia R00.1
[2021-04-16 16:34] LABS: Add Urine Microscopic? NO; Charge for UA Resulting for Rev
[2021-04-16 16:34] LABS: NT Pro B Type Natriuretic Pept 121 pg/mL (0-450); Procalcitonin 0.05 ng/mL (0-0.5)
[2021-04-16 16:45] LABS: Urine Appearance Clear (CLEAR); Urine Color Straw (Yellow)
[2021-04-16 16:46] LABS: Iron 58 ug/dL (59-158); Total Iron Binding Capacity 341 mcg/dl; Unsaturated Iron Binding 283 ug/dL (112-347)
[2021-04-16 16:46] LABS: Bilirubin Urine Neg (Negative); Blood Urine Neg (Negative); Glucose Urine UA Norm (Normal); Ketones Urine Negative (Negative); Leukocyte Esterase Urine Negative (Negative); Nitrate Urine Negative (Negative); Protein Urine Neg (Negative); Specific Gravity, Urine 1.015 (1.005-1.030); Sulfosalicylic Acid Urine Negative (Negative); Urobilinogen Urine Norm (Negative); pH Urine 9 (5-7)
[2021-04-16] MEDS: aspirin 81 mg EC Tablet PO (21:59)
[2021-04-16] MEDS: ferrous gluconate 324 mg Tablet PO (21:59)
[2021-04-16] MEDS: tamsulosin 0.4 mg Capsule PO (22:00)
[2021-04-16] MEDS: famotidine 20 mg/2 mL INJ IVP (22:01)
[2021-04-16] MEDS: enoxaparin 40 mg/0.4 mL Syringe SUBCUT (22:03)
[2021-04-16 23:48] LABS: Amphetamines Screen Urine Negative (Negative); Barbiturates Screen Urine Negative (Negative); Benzodiazepines Screen Urine Negative (Negative); Cocaine Screen Urine Negative (Negative); Opiate Screen Urine Positive (Negative); PCP Screen Urine Negative (Negative); THC Screen Urine Negative (Negative)
[2021-04-17] VITALS (77 sets, daily range): BP systolic 114–184; BP diastolic 70–114; PULSE 50–77; RESP 18–24; TEMP 36.2–36.7; O2SAT 92–98
[2021-04-17 04:10] LABS: Basophils # 0.1 10^3/uL (0.0-0.1); Basophils % 0.8 %; Eosinophils # 0.4 10^3/uL (0.0-0.8); Eosinophils % 5.5 %; Hematocrit 43.3 % (42.0-52.0); Hemoglobin 14.2 g/dL (11.7-16.6); Lymphocytes # 2.9 10^3/uL (0.8-4.8); Lymphocytes % 44.5 %; Mean Corpuscular HGB Conc 32.8 g/dL (30.0-36.0); Mean Corpuscular Hemoglobin 30.9 pg (28.0-34.0); Mean Corpuscular Volume 94.3 fl (80-94); Mean Platelet Volume 9.1 fL (7.4-10.4); Monocytes # 0.5 10^3/uL (0.2-0.9); Monocytes % 7.6 %; Neutrophils # 2.64 10^3/uL (1.8-7.7); Neutrophils % 41.1 %; Nucleated Red Blood Cells % 0 %; Platelet Count 178 10^3/cmm (130-400); Red Blood Count 4.59 10^6/uL (4.1-5.3); Red Cell Distribution Width 14.7 % (12.1-15.1); White Blood Count 6.4 10^3/uL (4.0-10.0)
[2021-04-17 04:32] LABS: Chol HDL Ratio 5.37 mg/dL (1.0-5.00); Cholesterol 188 mg/dL (0-200); HDL Cholesterol 35 mg/dL (60-100); LDL Cholesterol Calculated 75 mg/dL (50-129); Triglycerides 391 mg/dL (0-150); VLDL Cholestrol Calculation 78 mg/dL (0-30)
[2021-04-17 04:34] LABS: Alanine Aminotransferase 20 U/L (0-41); Albumin Level 3.5 g/dL (3.5-5.2); Alkaline Phosphatase 62 IU/L (40-130); Aspartate Amino Transferase 19 U/L (0-40); Blood Urea Nitrogen 14 mg/dL (8-23); Calcium 8.7 mg/dL (8.5-10.5); Carbon Dioxide 24 mmol/L (22-29); Chloride 105 mmol/L (98-107); Globulin 2.8 g/dL (1.3-4.6); Glucose 110 mg/dL (65-115); Magnesium 1.8 mg/dL (1.7-2.3); Osmolality Calculated 285 mOsm/kg (285-295); Phosphorus 3.5 mg/dL (2.5-4.5); Sodium 137 mmol/L (136-145); Total Bilirubin 0.3 mg/dL (0.15-1.2); Total Protein 6.3 g/dL (6.6-8.7)
[2021-04-17 04:57] LABS: Estmated Average Glucose 137; Hemoglobin A1C 6.4 % (4.0-6.0)
--- NOTE | 2021-04-17 07:31 | PC.NURSE ---
Admit Note Patient admitted to [facility] from ED via stretcher. Covering service notified. Orders reviewed & will continue to monitor. Patient and/or artist representative oriented to environment, equipment, and informed of the following as found in the admission booklet: patient rights & responsibilities, visitor policy, hand and respiratory hygiene practice. Other education includes: Medications, activity orders, new orders during stay. Patient and/or artist representative verbalized understanding of all teaching.
[2021-04-17] MEDS: famotidine 20 mg/2 mL INJ IVP ×2 (09:21→23:09)
[2021-04-17] MEDS: fluticasone nasal spray 16gm Btl INTRANASAL (09:21)
[2021-04-17] MEDS: metoprolol tartrate 25 mg Tablet PO (09:22)
[2021-04-17] MEDS: ferrous gluconate 324 mg Tablet PO ×2 (09:22→19:24)
[2021-04-17] MEDS: losartan 50 mg Tablet PO (09:22)
--- NOTE | 2021-04-17 14:05 | XACV_ITS ---
Exam Room: 1 Ht: 170 cm Wt: 103 kg BSA: 2.24 m2 Gender: Male : 1945 Any Known Allergies: No known allergies Exam Priority: Routine Procedure(s): Procedure Description: Diagnostic procedure Procedure Description: Venous Graft Catheterization Procedure Description: Coronary Angiography Procedure Description: Pressure Wire EMILY, Aayush; Diagnostic Cath Status: Urgent Diagnostic Findings * Left Main has no disease. * Mid Left Anterior Descending: obstructive 60% stenosis, KEVAN: 3 flow. * Mid Right Coronary Artery to Distal Right Coronary Artery: total occlusion, KEVAN: 0 flow. * Proximal Circumflex to Mid Circumflex: total occlusion, KEVAN: 0 flow. * 1st Diagonal: moderate 50% stenosis, KEVAN: 3 flow. * Ascending Aorta to Right Posterior AV graft: patent. * Ascending Aorta to First Obtuse Marginal Branch Segment graft: patent. * SVG y-graft to Third Obtuse Marginal Branch Segment: patent. * Three grafts visualized. * Coronary angiography shows right dominance. Conclusions 1. ALDANA was not used. 2. FFR: After equalizing the distal and proximal pressure of FFR wire proximal to the lesion, mid LAD lesion was crossed with FFR wire. IV adenosine at rate of 140 mcg/min was started. Patient did not compliant of any symptoms, at then end of two minutes FFR was recorded as 0.83, which is not significant ALDANA was not used. 3. There is total occlusion coronary artery disease with three vessel disease. 4. Three coronary grafts visualized: all grafts patent. 5. Patient has prior CABG. Recommendations * Continue current medical management and risk factor modification. Diagnostic RX Recommendation: medical therapy and/or counseling Pressures Phase:Rest AO : 165 / 73 ( 106 ) @ 2:49:00 PM 147 / 65 ( 95 ) @ 2:58:00 PM 155 / 69 ( 101 ) @ 3:01:00 PM Clinical Evaluation EBL: 5mL-10mL Procedural Details Procedure Consent Obtained. Pre-Procedure Time Out. Identified patient by full name and date of as verbalized by the patient/guarantor. Does the consent match the physician's order: Yes. Accurate & Complete Informed Consent: Yes. Inpatient/Outpatient History & Physical on Chart: Yes. If H&P is completed, is and addenduem needed: No. Visualize and Verify Site with Patient/Guarantor: N/A. Relevant Radiology Images available: Yes. The risks, benefits, and alternatives of sedation and/or procedure were discussed by physician. The patient agrees to continue. Procedure started. [facility] Clinical Fraility Score: 3: Managing Well. Assistant Shift Supervisor Indications: Worsening Angina. Chest Pain Symptom Assessment: Typical Angina Symptoms. Cardiovascular Instability: No. Correct patient, site and procedure confirmed by cath team. PERRLA. Strong, equal hand sheeter helper bilaterally. Lungs clear x 5 lobes. IV Site on Arrival: 20 gauge in the right anticubital. IV Fluids: 0.9% NaCl at KVO. 0 mL infused prior to specialist employee labor relations. Pre Procedural Pulses: bilateral dorsalis pedis was Doppled. Pre Procedural Pulses: bilateral posterior tibial was Doppled. Oxygen started at 2liters/min via nasal canula. bilateral groins was prepped with chloroprep then draped in the usual sterile fashion. Physician notified. Baseline sample Acquired. HR: 56 BPM. Patient's spouse in the radiology waiting room. Dr. Looney will update at the completion of the procedure. Equipment: 6F - Femoral. Cardiac Cath Pack. ACIST Manifold Kit Model BT 2000. Heparinized Saline (2 units/mL), 1000 mL bag. Kit, Micropuncture X 2. Physician arrived. Physician scrubbed in. Immediate Pre-Procedure Time Out. Correct Patient: Yes; Correct Procedure: Yes; Correct Site: Yes; Correct Patient Position: Yes; Correct Supplies: Yes; Dried Flammable Prep: Yes; Blood Products Available: N/A;. Lidocaine 1% infiltrated to the right groin. Arterial access obtained with micropuncture set. A 5 kyrgyz JL4 catheter in over wire. Multiple views taken of left coronary artery. Catheter removed over the standard wire. A 5 kyrgyz JR4 catheter in over wire. Cineography of right coronary artery performed. SVG's to Circumflex visualized and patent. SVG's to RCA visualized and patent. Catheter removed over the standard wire. 6 kyrgyz JL 4 guide catheter was inserted over the wire. FFR guidewire was advanced through the guide catheter to lesion in the mid LAD. An FFR value of 0.83 was obtained for a lesion located at Mid LAD. Fractional flow reserve measurements obtained. Wire out. Cine of the LAD performed. Guide catheter out. Medication's Wasted: Adenosine = 60 mg. Total IV fluids: 75 mL. Medication's Wasted: Heparin = 4000 Units. A Right femoral angiogram was performed to determine safe placement of closure device. Perclose unsuccessful. Sheath upsized to a 7 Fr. Sheath(s) sutured into position with 2-0 silk and sterile 4x4's and Op-site applied over the site. No oozing or signs and symptoms of hematoma noted. Arterial sheath flushed and connected to tranducer and pressure bag with heparinized saline. Post Procedure: Pulses reassessed and unchanged. PERRLA. Strong, equal hand sheeter helper bilaterally. No VTE prophylaxis required. Post-op diagnosis: SVG's to the CX and RCA patent. FFR of the mid LAD 0.83. Complications: none. Estimated blood loss: 5mL-10mL. Procedure completed. Patient transferred by bed to 1st floor. Vital chart was stopped. Access Site Site: Right Femoral artery Sheath Size: 6 Fr Hemostasis Success: Successful Procedure Medications Start: 4:22 PM Stop: 4:22 PM Medication: Versed Amount: 1 mg Route: I.V. Start: 4:22 PM Stop: 4:22 PM Medication: Fentanyl Amount: 50 mcg Route: I.V. Start: 4:28 PM Stop: 4:28 PM Medication: Versed Amount: 1 mg Route: I.V. Start: 4:47 PM Stop: 4:47 PM Medication: Fentanyl Amount: 50 mcg Route: I.V. Start: 5:10 PM Stop: 5:10 PM Medication: Versed Amount: 1 mg Route: I.V. Start: 5:18 PM Stop: 5:18 PM Medication: Adenosine (Adenocard) Amount: 865 ml/hr Route: I.V. bolus Start: 5:15 PM Stop: 5:15 PM Medication: Heparin Amount: 5000 units Route: I.V. I, the attending physician, have reviewed and verified all procedure medications. Yes, all medications given per verbal order History/Risk Factors Hypertension: Yes Dyslipidemia: Yes Peripheral Arterial Disease (PAD): No Myocardial Infarction (TN): No Obesity: No Renal Disease: No Tobacco Use: Never Prior Interventions PCI: No CABG: Yes Valve Surgery: No Report Signatures Finalized by Ronnie Looney MD on 04/29/2021 07:43 PM
--- NOTE | 2021-04-17 15:04 | P.PN_ITS ---
Subjective Subjective: Interval history: No acute events overnight. Has remained hemodynamically stable and afebrile. Having occasional bradycardia. No chest pain or dizziness or nausea or vomiting overnight. Patient did eat light breakfast well today morning. Vitals/I&O/Wt Last Vital Signs Temp 97.2 F L 04/17/21 03:57 Pulse 65 04/17/21 08:00 Resp 18 04/17/21 08:00 BP 168/82 04/17/21 09:22 Pulse Ox 98 04/17/21 08:00 04/17/21 04/17/21 04/17/21 06:59 14:59 22:59 Intake Total 100 / 100 Output Total 450 / 450 Balance -350 / -350 Weight last 48 hrs Weight 102.648 kg Weight 102.058 kg Weight 97.522 kg Physical Exam Narrative: EXAM NARRATIVE: General: No acute distress, AO x3 HEENT: PERRLA, pupils bilaterally equal and reactive Chest: Normal vesicular breath sounds, no added sounds, equal good air entry bilaterally CVS: S1-S2 regular, no murmurs, no tachycardia, no gallops, no rubs Abdomen: Soft, nontender, no organomegaly, bowel sounds present Neuro: No focal deficits, no facial deformity, AO x3, power 5/5 in all limbs Data : 04/17/21 03:57 04/17/21 03:57 A&P Assessment and plan (1) Unstable angina: Status: Acute (2) Hx of CABG: Status: Acute (3) Essential hypertension: Status: Acute (4) Bradycardia: Status: Acute (5) Type 2 diabetes mellitus: Status: Acute (6) Coronary artery disease: Status: Acute (7) Hyperlipemia: Status: Acute Qualifiers: Hyperlipidemia type: other hyperlipidemia Qualified Code(s): E78.49 - Other hyperlipidemia Additional A&P Information Unstable Angina: No more chest pain. Troponin cycle negative. Continue with aspirin, statin. Appreciate A1c, lipid panel results. A1c elevated. Lipid panel still deranged. Will increase home dose of simvastatin. Echocardiogram results awaited. NPO. Plan for cardiac catheterization later in the day today. Appreciate cardiology recommendations. Bradycardia: Telemetry Continue with metoprolol at 25 mg twice daily. HTN: Goal less than 140/90 mmhg. Blood pressure still elevated. For now continue with losartan 50 mg daily. Will uptitrate post cardiac catheterization depending on blood pressures. Type 2 diabetes mellitus: HbA1c 6.4. New diagnosis. Start on insulin sliding scale at low-dose protocol. Most likely patient should be discharged on oral hypoglycemics. FC Lovenox 40 mg SQ QD Famotidine for PUD PPx Attestations Medical Necessity Statement*: Requires further hospitalization for management of unstable angina requiring cardiac catheterization Time Spent in Patient Care: Greater than 35 minutes (>than 50% of time spent in counselling and/or direct pt care on unit) . Coding Level of Care Code Acute Knowledge Management Consultant for Chg Fwd Diagnoses Unstable angina I20.0 Hx of CABG Z95.1 Essential hypertension I10 Bradycardia R00.1 Type 2 diabetes mellitus E11.9 Coronary artery disease I25.10 Hyperlipemia E78.49 Hyperlipidemia type: other hyperlipidemia
--- NOTE | 2021-04-17 16:10 | USCV_ITS ---
Albaro Lerma Age: 75 Gender: M : 1945 Exam Date: 04/17/2021 08:29 Ordering Phys: Tye Caballero MD Technologist: Lucy Porter [place] [facility] [place]: post CABG, CAD, CP BP: 168 / 82 HR: 66 Rhythm: Sinus Technical Quality: Adequate MEASUREMENTS (Male / Female) Normal Values 2D ECHO LV Diastolic Diameter PLAX 3.6 cm 4.2 - 5.9 / 3.9 - 5.3 cm LV Systolic Diameter PLAX 2.6 cm IVS Diastolic Thickness 1.4 cm 0.6 - 1.0 / 0.6 - 0.9 cm IVS Systolic Thickness 1.9 cm LVPW Diastolic Thickness 2.1 cm 0.6 - 1.0 / 0.6 - 0.9 cm LVPW Systolic Thickness 2.6 cm LVOT Diameter 2.0 cm LV Ejection Fraction 2D Teich 57.5 % LV Ejection Fraction MOD 2C 63.2 % LV Ejection Fraction 2C AL 63.9 % LA Diameter 3.4 cm LA Width 2.8 cm LA Height 4.6 cm RA Width 3.2 cm RA Height 3.7 cm Aorta at Sinotubular Diameter 2.2 cm DOPPLER AV Peak Velocity 113.0 cm/s LVOT Peak Velocity 97.0 cm/s AV Area Cont Eq vti 2.9 cm squared AV Area Cont Eq pk 2.7 cm squared MV Peak Velocity 80.0 cm/s MV Area PHT 2.5 cm squared Mitral E to A Ratio 0.8 MV E' Velocity 34.5 cm/s Mitral E to MV E' Ratio 9.2 Mitral E to LV E' Lateral Ratio 8.6 Mitral E to LV E' Septal Ratio 10.1 TV Peak E Velocity 59.0 cm/s PV Peak Velocity 141.0 cm/s RV Acceleration Time 0.1 s RV Ejection Time 0.3 s RV AcT/ET 0.2 FINDINGS Left Ventricle Normal left ventricular cavity size. Normal left ventricular systolic function. Left ventricular ejection fraction is estimated at 55 %. There appear to be anterior wall hypokinesis with septal bounce could be secondary interventricular conduction delay or postoperative state.Grade I/IV diastolic dysfunction (abnormal relaxation filling pattern), normal to mildly elevated filling pressures. Right Ventricle The right ventricle is normal in size and function. RVSP could not be calculated due to incomplete tricuspid regurgitation velocity profile. Right Atrium The right atrium is normal in size. Left Atrium The left atrium is normal in size. Mitral Valve Moderately thickened mitral valve. No mitral valve stenosis. Mild mitral annular calcification. Aortic Valve Moderate aortic valve calcification. No aortic valve stenosis. Trace aortic valve regurgitation. Tricuspid Valve Structurally normal tricuspid valve without significant stenosis or regurgitation. Pulmonic Valve Structurally normal pulmonic valve without significant stenosis. There is no pulmonic regurgitation. Pericardium Normal pericardium without effusion. Aorta Normal ascending aorta dimension. CONCLUSIONS 1-Normal left ventricular cavity size. Normal left ventricular systolic function. Left ventricular ejection fraction is estimated at 55 %. There appear to be anterior wall hypokinesis with septal bounce could be secondary interventricular conduction delay or postoperative state.Grade I/IV diastolic dysfunction (abnormal relaxation filling pattern), normal to mildly elevated filling pressures. 2-No significant valve abnormalities. 3-There is no pericardial effusion. 4-The right ventricle is normal in size and function. RVSP could not be calculated due to incomplete tricuspid regurgitation velocity profile. 5-There are no prior echocardiogram studies to compare. Ronnie Looney MD (Electronically Signed) Final Date: 17 April 2021 21:15 S
--- NOTE | 2021-04-17 16:20 | W.PM.OPSUD ---
Surgery/Procedure H&P Update DATE OF PROCEDURE: April 17, 2021 DATE H&P PERFORMED: 04/16/21 H&P UPDATE INFORMATION: I have reviewed H&P completed within last 30 days, I have examined patient prior to procedure and No changes to prior documentation PREOP DIAGNOSIS: Worsening of chest pain along with shortness of breath suspicious for unsta PATIENT REASSESSED PRIOR TO SEDATION, WITH NO CHANGE NOTED: Yes PHYSICAL EXAM: alert, oriented x 3 and clear to auscultation bilaterally AIRWAY EVAL/ANESTHESIA PLAN: ASA II and Risks, benefits & alternatives of sedation and/or procedure discussed ADDITIONAL INFORMATION: Patient has been explained all risk benefit and alternative for the procedure by myself he understand risk for stroke contrast-induced nephropathy urgent emergent bypass transfusion vascular injury he is a candidate for DAPT
--- NOTE | 2021-04-17 16:30 | PC.NURSE ---
Pt left for systems testing laboratory technician at 1620.
--- NOTE | 2021-04-17 18:15 | PC.NURSE ---
Pt returned from hemodialysis lab technician at approximately 1750. Pt had cardiac sheath in right groin connected to pressure bag. Drsg to right groin dry and intact, no swelling, hematoma, or bleeding noted. Pt had no c/o pain or discomfort at the present time. no needs voiced. Call light in reach. Will cont to monitor.
[2021-04-17 19:37] LABS: Glucose Point of Care 100 mg/dL (70-110)
--- NOTE | 2021-04-17 19:55 | PM.PN ---
Subjective Subjective: Interval history: Patient continues to have shortness of breath upon exertion and chest pressure. He was taken to the Social Welfare Administrator noted to have 60 % mid LAD stenosis FFR was not significant at 0.84, SVG to circumflex and SVG to RCA was patent ALDANA was not used Vitals/I&O/Wt Last Vital Signs Temp 98.1 F 04/17/21 19:34 Pulse 54 L 04/17/21 19:34 Resp 22 H 04/17/21 19:34 BP 153/81 04/17/21 19:34 Pulse Ox 95 04/17/21 19:34 04/17/21 04/17/21 04/17/21 06:59 14:59 22:59 Intake Total 100 / 100 Output Total 450 / 450 Balance -350 / -350 Weight last 48 hrs Weight 226 lb 4.8 oz Weight 225 lb Weight 215 lb Physical Exam Narrative: EXAM NARRATIVE: GENERAL: Patient is alert, awake and oriented x3. NECK: No jugular vein distension. HEENT: No cyanosis. No icterus. No pallor. HEART: Regular S1 and S2. No murmur, rub or gallop. LUNGS: Clear to auscultate bilaterally. ABDOMEN: Soft, nontender and nondistended. Positive bowel sounds. No guarding, rebound or tenderness. CENTRAL NERVOUS SYSTEM: Grossly nonfocal. EXTREMITIES: Lower extremities without edema bilaterally. Const: COMMON NORMALS: alert Resp: COMMON NORMALS: clear to auscultation bilaterally AUSCULTATION: clear to auscultation bilaterally Neuro: SENSORIUM/ORIENTATION: Yes alert Data : 04/17/21 03:57 04/17/21 03:57 Micro: Microbiology 04/16/21 16:29 MRSA Culture - Final Nose A&P Assessment and plan (1) Essential hypertension: Status: Acute (2) Chest pain: Status: Acute (3) Hyperlipemia: Status: Acute Qualifiers: Hyperlipidemia type: other hyperlipidemia Qualified Code(s): E78.49 - Other hyperlipidemia (4) Bradycardia: Status: Acute (5) Coronary artery disease: Status: Acute Patient has presented with typical chest pain symptoms. Symptoms are concerning for unstable angina. He has significant coronary artery disease history with prior CABG. Continue trending troponins Continue aspirin and statin. If troponins increase significantly, start anticoagulation. Secondary to his symptoms concerning for unstable angina, will proceed with coronary angiogram tomorrow. Keep patient n.p.o. past midnight. Order echocardiogram Thank you for involving us with care of this patient. We will continue to follow. Please call with questions. Attestations Medical Necessity Statement*: Patient require continuation hospitalization for above defined care. Coding Level of Care Code Established Pt Acute Skin Care Instructor for Markel Newman Patient Type Established History Detailed Exam Detailed Medical Decision Making Moderate Complexity Diagnoses Essential hypertension I10 Chest pain R07.9 Hyperlipemia E78.49 Hyperlipidemia type: other hyperlipidemia Bradycardia R00.1 Coronary artery disease I25.10
[2021-04-17 20:19] LABS: Partial Thromboplastin Time 76.2 SECONDS (23.9-36.7)
[2021-04-17 20:54] LABS: Glucose Point of Care 101 mg/dL (70-110)
[2021-04-17] MEDS: morphine 4 mg/mL SDV 1 mL 2 MG IVP (20:56)
[2021-04-17] MEDS: sodium chloride 0.9% 1,000 ML 100 ML IV (21:03)
[2021-04-17] MEDS: tamsulosin 0.4 mg Capsule PO (21:04)
[2021-04-17] MEDS: atorvastatin 40 mg Tablet PO (21:06)
--- NOTE | 2021-04-17 21:19 | PC.NURSE ---
Around 2144: Patient hypertensive, B/P 186/60. Patients PTT 76.2. Notified Dr. Looney. Orders received, see MAR and orders. Per Dr. Looney, hold lovenox and aspirin scheduled for tonight.
[2021-04-17] MEDS: amlodipine 5 mg Tablet PO (22:06)
[2021-04-17] MEDS: nitroglycerin 1 gm/inch oint Pkt 1 INCH TOPICAL (22:07)
[2021-04-17 23:15] LABS: Partial Thromboplastin Time 33.8 SECONDS (23.9-36.7)
[2021-04-18] VITALS (23 sets, daily range): BP systolic 107–170; BP diastolic 56–83; PULSE 54–75; RESP 12–26; TEMP 36.4–37.1; O2SAT 90–100
[2021-04-18] MEDS: morphine 4 mg/mL SDV 1 mL 2 MG IVP (00:27)
--- NOTE | 2021-04-18 01:03 | PC.NURSE ---
@ 2350 pulled patients sheeth right groin, PTT 33.8 at time, 25 minutes pressure held, minimal bleeding noted, patient tolerated procedure well, VS stayed WNL.
[2021-04-18] MEDS: acetaminophen 325 mg Tablet 650 MG PO (03:08)
[2021-04-18 03:45] LABS: Basophils # 0.1 10^3/uL (0.0-0.1); Basophils % 0.7 %; Eosinophils # 0.3 10^3/uL (0.0-0.8); Eosinophils % 4.5 %; Hematocrit 41.3 % (42.0-52.0); Hemoglobin 13.7 g/dL (11.7-16.6); Lymphocytes # 2.4 10^3/uL (0.8-4.8); Mean Corpuscular HGB Conc 33.2 g/dL (30.0-36.0); Mean Corpuscular Volume 93.4 fl (80-94); Monocytes # 0.6 10^3/uL (0.2-0.9); Neutrophils # 3.99 10^3/uL (1.8-7.7); Neutrophils % 54.3 %; Nucleated Red Blood Cells % 0 %; Platelet Count 172 10^3/cmm (130-400); Red Blood Count 4.42 10^6/uL (4.1-5.3); Red Cell Distribution Width 14.7 % (12.1-15.1); White Blood Count 7.4 10^3/uL (4.0-10.0)
[2021-04-18 04:24] LABS: Alanine Aminotransferase 22 U/L (0-41); Albumin Level 3.4 g/dL (3.5-5.2); Alkaline Phosphatase 54 IU/L (40-130); Anion Gap 13.5 (5-19); Aspartate Amino Transferase 17 U/L (0-40); Blood Urea Nitrogen 11 mg/dL (8-23); Calcium 8.6 mg/dL (8.5-10.5); Carbon Dioxide 24 mmol/L (22-29); Chloride 104 mmol/L (98-107); Globulin 2.5 g/dL (1.3-4.6); Glucose 115 mg/dL (65-115); Osmolality Calculated 286 mOsm/kg (285-295); Potassium 3.5 mmol/L (3.5-5.1); Sodium 138 mmol/L (136-145); Total Bilirubin 0.3 mg/dL (0.15-1.2); Total Protein 5.9 g/dL (6.6-8.7)
[2021-04-18 06:41] LABS: Glucose Point of Care 116 mg/dL (70-110)
[2021-04-18] MEDS: losartan 50 mg Tablet PO (09:11)
[2021-04-18] MEDS: ferrous gluconate 324 mg Tablet PO ×2 (09:11→17:57)
[2021-04-18] MEDS: metoprolol tartrate 25 mg Tablet PO (09:11)
[2021-04-18] MEDS: fluticasone nasal spray 16gm Btl INTRANASAL (09:12)
[2021-04-18] MEDS: famotidine 20 mg/2 mL INJ IVP ×2 (09:43→21:07)
[2021-04-18 11:42] LABS: Glucose Point of Care 172 mg/dL (70-110)
--- NOTE | 2021-04-18 14:58 | P.PN_ITS ---
Subjective Subjective: Interval history: 75 year old male with past medical history of hypertension, CAD post CABG in May 2017, recent COVID-19 in October 2020, hyperlipidemia who sees Dr. Looney as an outpatient presented today with EMS. He states that when he woke up he had left sided sharp, throbbing sensation which was limited for around 5 mins. Associated with dizziness but no N/V, LOC. Sym ptoms were self limiting so he ignored them. He had similar symptom later in the day so EMS was called. Their were concerns for new LBBB so STEMI alert was called. Cardiology was consulted and on review STEMI alert was consulted. Upon admission to the hospital patient was taken for cardiac catheterization and noted to have 60 % mid LAD stenosis FFR was not significant at 0.84, SVG to circumflex and SVG to RCA was patent ALDANA was not used. Echo showed pEF at 55% and grade 1 diastolic dysfunction. Continued to complain of dyspnea today. Denied chest pain. Productive cough. Noted these symptoms since covid-19. Has not required supplemental o2. Vitals/I&O/Wt Last Vital Signs Temp 98 F 04/18/21 02:42 Pulse 67 04/18/21 09:55 Resp 12 04/18/21 09:55 BP 151/81 04/18/21 09:55 Pulse Ox 100 04/18/21 09:55 04/17/21 04/18/21 04/18/21 22:59 06:59 14:59 Intake Total 1003.333 / 1003.333 Output Total 575 / 575 Balance 428.333 / 428.333 Weight last 48 hrs Weight 102.648 kg Weight 102.648 kg Weight 102.058 kg Physical Exam Narrative: EXAM NARRATIVE: General: No acute distress, AO x3 HEENT: PERRLA, pupils bilaterally equal and reactive Chest: Normal vesicular breath sounds, no added sounds, equal good air entry bilaterally CVS: S1-S2 regular, no murmurs, no tachycardia, no gallops, no rubs Abdomen: Soft, nontender, no organomegaly, bowel sounds present Neuro: No focal deficits, no facial deformity, AO x3, power 5/5 in all limbs Data : 04/18/21 03:35 04/18/21 03:35 Micro: Microbiology 04/16/21 16:29 MRSA Culture - Final Nose A&P Assessment and plan (1) Unstable angina: S/p Cardiac cath. Aspirin 81 mg PO daily Lipitor 40 mg PO qhs B-fe on board monitor on tele ECHO - grade 1 diastolic dysfunction Nitro paste Further plan per cardiology Status: Acute (2) Hx of CABG: Status: Acute (3) Essential hypertension: Status: Acute (4) Bradycardia: Metoprolol decreased to 25 mg po BID Monitor on tele Status: Acute (5) Type 2 diabetes mellitus: Sliding scale insulin Diabetic diet Qachs checks Status: Acute (6) Coronary artery disease: Status: Acute (7) Hyperlipemia: Statin as ordered Status: Acute Qualifiers: Hyperlipidemia type: other hyperlipidemia Qualified Code(s): E78.49 - Other hyperlipidemia Additional A&P Information DVT ppx; Lovenox 40 mg SQ QD Famotidine for PUD PPx Attestations Medical Necessity Statement*: Will continue hospitalization for management of cardiac care. Time Spent in Patient Care: Greater than 35 minutes (>than 50% of time spent in counselling and/or direct pt care on unit) . Coding Level of Care Code Acute Fiberline Supervisor for Harisg Fwd Diagnoses Unstable angina I20.0 Hx of CABG Z95.1 Essential hypertension I10 Bradycardia R00.1 Type 2 diabetes mellitus E11.9 Coronary artery disease I25.10 Hyperlipemia E78.49 Hyperlipidemia type: other hyperlipidemia
[2021-04-18 16:45] LABS: Glucose Point of Care 99 mg/dL (70-110)
[2021-04-18] MEDS: tamsulosin 0.4 mg Capsule PO (21:06)
[2021-04-18] MEDS: atorvastatin 40 mg Tablet PO (21:06)
[2021-04-18] MEDS: aspirin 81 mg EC Tablet PO (21:07)
[2021-04-18] MEDS: enoxaparin 40 mg/0.4 mL Syringe SUBCUT (21:08)
[2021-04-18] MEDS: hyDRALAzine 20 mg/mL INJ 1 mL 10 MG IVP (21:16)
[2021-04-18 23:14] LABS: Glucose Point of Care 120 mg/dL (70-110)
[2021-04-19 03:00] VITALS: BP 105/50; PULSE 79; RESP 20; TEMP 36.6; O2SAT 96
[2021-04-19 05:15] VITALS: PULSE 83
[2021-04-19 06:19] LABS: Glucose Point of Care 134 mg/dL (70-110)
--- NOTE | 2021-04-19 08:36 | PM.DCS ---
Discharge Providers Date of Admission: 04/16/21 15:58 Date of Discharge: April 19, 2021 Attending Provider at Admission: Tye Caballero MD Attending Provider at Discharge: Zoila Zamora Primary Care Provider: Tati Cole Diagnoses at Discharge Discharge Diagnosis (1) Unstable angina: Status: Resolved (2) Hx of CABG: Status: Acute (3) Essential hypertension: Status: Acute Permanent problem details: Well controlled continue medicine (4) Bradycardia: Status: Resolved (5) Type 2 diabetes mellitus: Status: Acute (6) Coronary artery disease: Status: Acute Permanent problem details: Continue to optimize medicine. (7) Hyperlipemia: Status: Acute Qualifiers: Hyperlipidemia type: other hyperlipidemia Qualified Code(s): E78.49 - Other hyperlipidemia Reason for Visit Reason for Visit: CP Hospital Course Hospital Course 75 year old male with past medical history of hypertension, CAD post CABG in May 2017, recent COVID-19 in October 2020, hyperlipidemia who sees Dr. Looney as an outpatient presented today with EMS. He states that when he woke up he had left sided sharp, throbbing sensation which was limited for around 5 mins. Associated with dizziness but no N/V, LOC. Symptoms were self limiting so he ignored them. He had similar symptom later in the day so EMS was called. Their were concerns for new LBBB so STEMI alert was called. Cardiology was consulted and on review STEMI alert was consulted. Upon admission to the hospital patient was taken for cardiac catheterization and noted to have 60 % mid LAD stenosis FFR was not significant at 0.84, SVG to circumflex and SVG to RCA was patent ALDANA was not used. Echo showed pEF at 55% and grade 1 diastolic dysfunction. Noted improvement on day of discharge. Was not longer requiring supplemental oxygen. Cleared by cardiology Physical Exam Narrative: EXAM NARRATIVE: General: No acute distress, AO x3 HEENT: PERRLA, pupils bilaterally equal and reactive Chest: Normal vesicular breath sounds, no added sounds, equal good air entry bilaterally CVS: S1-S2 regular, no murmurs, no tachycardia, no gallops, no rubs Abdomen: Soft, nontender, no organomegaly, bowel sounds present Neuro: No focal deficits, no facial deformity, AO x3, power 5/5 in all limbs Discharge Data Data Completed and Pending: Completed Studies During Hospitalization Category Date Time Status FREIGHT RECEIVER request for service Routin e Exams 04/17/21 14:05 Completed XR chest 1V za ble [id number] Stat Exams 04/16/21 12:02 Completed CV. echo complete * [id number] Routine Ultrasound 04/17/21 16:10 Completed Vitals: Last Vital Signs Temp 97.8 F 04/19/21 10:01 Pulse 76 04/19/21 10:01 Resp 20 H 04/19/21 03:00 BP 161/98 04/19/21 10:01 Pulse Ox 95 04/19/21 10:01 Discharge Plan Discharge Patient Disposition: Home Condition: Stable Prescriptions: New losartan 50 mg Tablet 50 mg PO DAILY Qty: 30 RF: 0 atorvastatin 40 mg Tablet 40 mg PO BEDTIME Qty: 30 RF: 0 metoprolol tartrate 25 mg Tablet 25 mg PO BID@0900,2100 Qty: 60 RF: 0 Continued aspirin [Adult Low Dose Aspirin] 81 mg tablet,delayed release (DR/EC) 81 mg PO BEDTIME RF: 0 Xtandi 40 mg capsule 80 mg PO BID RF: 0 fluticasone propionate [Flonase Allergy Relief] 50 mcg/actuation spray,suspension 1 - 2 spray intranasal DAILY RF: 0 omega-3 fatty acids 1,000 mg capsule 1,000 mg PO BEDTIME RF: 0 oxybutynin chloride 10 mg tablet extended release 24hr 10 mg PO BEDTIME RF: 0 tamsulosin 0.4 mg capsule 0.4 mg PO BEDTIME RF: 0 Vitamin D3 25 mcg (1,000 unit) Capsule 25 mcg PO DAILY RF: 0 Collagen Powder See Rx Instructions .ROUTE .COMPLEX RF: 0 calcium 1 tab PO DAILY RF: 0 Discontinued metoprolol succinate 50 mg tablet extended release 24 hr 50 mg PO BEDTIME RF: 0 simvastatin 20 mg tablet 20 mg PO BEDTIME RF: 0 Discharge Orders: Discharge Order (Routine); Ordered 04/19/21 Ordered By: Zoila Zamora Referrals: Tati Cole [Primary Care Provider] - 04/24/21 11:00 am (You have a hospital followup with Tati Cole at her office on April 24 at 11:00am) Ronnie Looney MD [Physician] - 05/21/21 1:45 pm (You have a cardiology followup with Dr. Looney at [facility] on May 21 at 1:45pm) Discharge Diet: Cardiac and Diabetic Discharge Activity: Increase activity as tolerated Patient Instructions: Metoprolol (By mouth) (Lopressor, Toprol XL), Losartan (By mouth) (Cozaar), Atorvastatin (By mouth) (Lipitor), Opioid Safety, Post Angiogram Home Care Instructions Discharge Attestations Time Spent in Discharge Care*: greater than 30 min Specific Discharge Activities: educating patient, discussing with pcp/other providers, discussing with manager rn case/social workers/dc planners, documenting/other paperwork and evaluating patient/reviewing data Status at Discharge: Cognitive status at discharge: cognitively intact, Behavioral status at discharge: cooperative, Overall status at discharge: patient is progressing back to baseline Quality Metrics Clinical Quality Measures During this hospital stay, did patient experience: None Coding Level of Care Code Acute g FW DC note Diagnoses Unstable angina I20.0 Hx of CABG Z95.1 Essential hypertension I10 Bradycardia R00.1 Type 2 diabetes mellitus E11.9 Coronary artery disease I25.10 Hyperlipemia E78.49 Hyperlipidemia type: other hyperlipidemia
[2021-04-19 09:24] VITALS: BP 161/98
[2021-04-19] MEDS: losartan 50 mg Tablet PO (09:24)
[2021-04-19] MEDS: ferrous gluconate 324 mg Tablet PO (09:25)
[2021-04-19] MEDS: metoprolol tartrate 25 mg Tablet PO (09:25)
[2021-04-19] MEDS: fluticasone nasal spray 16gm Btl INTRANASAL (09:25)
[2021-04-19 09:40] VITALS: BP 161/98; PULSE 76; TEMP 36.6; O2SAT 95
[2021-04-19 10:01] VITALS: BP 161/98; PULSE 76; TEMP 36.6; O2SAT 95
--- NOTE | 2021-04-19 10:16 | PC.SOCIAL ---
IMM Update Pg. 2 of IMM updated and reviewed with patient, who verbalized understanding. Copy provided.
--- NOTE | 2021-04-19 11:42 | PC.NURSE ---
pt education provided, no questions or concerns. Pt left with spouse via wheelchair
== END 2021-04-19 10:30 | disposition home or self-care (01) | DRG 287 ==
LOC: ER 15:58 → CSU 17:37
PROVIDERS: Internal Medicine Cardiovascular Disease; Admitting Provider Student in an Organized Health Care Education/Training Program; Emergency Provider Emergency Medicine; PCP Family Medicine; Visit Provider Hospitalist
PROC: B2131ZZ Fluoroscopy of Multiple Coronary Artery Bypass Grafts using Low Osmolar Contrast (ICD-10-PCS; principal; 2021-04-17 16:30)
DX: I25.110 Atherosclerotic heart disease of native coronary artery with unstable angina pectoris (principal); I10 Essential (primary) hypertension; R00.1 Bradycardia, unspecified; E11.9 Type 2 diabetes mellitus without complications; E78.49 Other hyperlipidemia; C61 Malignant neoplasm of prostate; K27.9 Peptic ulcer, site unspecified, unspecified as acute or chronic, without hemorrhage or perforation; Z95.1 Presence of aortocoronary bypass graft; Z86.16 Personal history of COVID-19; Z79.82 Long term (current) use of aspirin; Z79.899 Other long term (current) drug therapy
CPT/HCPCS: 36415; 36416; 71045; 80048; 80053; 80061; 80306; 81003; 82962; 83036; 83540; 83550; 83735; 83880; 84100; 84145; 84439; 84443; 84484; 85025; 85378; 85610; 85730; 87426; 87641; 93005; 93306; 93455; 93571; 96361; 96372; 96374; 99285; C1769; C1887; C1894; J0153; J0360; J1644; J1650; J2250; J2270; J3010; J3490; J7030; Q9967

== ENCOUNTER 2021-08-31 02:16 | Emergency (ER) | payer OTHER, MEDICARE, SELFPAY ==
[2021-08-31 02:22] VITALS: BP 186/86; PULSE 61; RESP 18; TEMP 37.1; O2SAT 96; BMI 35.2
--- NOTE | 2021-08-31 02:30 | ED_ITS ---
HPI - Male Genitourinary General: Chief complaint: Urogenital-Male Stated complaint: Unable to urinate Time Seen by Provider: 08/31/21 02:30 History of Present Illness: Mr. Lerma is a 75-year-old gentleman with significant past medical history of prostate cancer number of years ago presents emergency department due to urinary retention. He reports last urination was at 5 or 6 PM on 08/30. He tried to urinate again sometime after dinner and just blood and a burning sensation. He has not had signs of systemic illness and denies any preceding symptoms. He has moderate intensity abdominal discomfort associated with his urinary retention. No other specific changes in health, e xacerbating, or alleviating factors identified. Onset (ago): hour(s) Duration: progressively worsening Location: abdomen Severity: moderate Associated symptoms: Reports urinary retention Review of Systems General: Reports: 10 or more systems reviewed and unremarkable except in HPI and below PFSH ED PFSH: Medical History CAD (coronary artery disease) COVID-19 Essential hypertension Well controlled continue medicine Hx of atherosclerotic cardiovascular disease Hx of chest pain Hyperlipemia Prostate cancer Surgical History Hx of CABG Social History Smoking and tobacco status: former smoker Quit status (tobacco): has quit using tobacco Year quit tobacco: 45 years ago 3 pack per d Former quit date comment: smoked 20 years Alcohol intake: former Lives independently: Yes Household members: spouse Marital status: Number of children: 3 service: Yes Pets and animals: Yes Pets & animals: dog(s) History of recent travel: No Current gender identity: Male Physical Exam Const: COMMON NORMALS: alert GENERAL APPEARANCE: cooperative and well developed HENMT: COMMON NORMALS: normocephalic and atraumatic HEAD & SCALP: normocephalic and atraumatic Eye: COMMON NORMALS: conjunctivae normal CONJUNCTIVA: Yes conjunctivae normal SCLERA: sclerae normal Neck/C-Spine: COMMON NORMALS: supple GENERAL: Yes trachea midline Resp: COMMON NORMALS: normal respiratory effort and clear to auscultation bilaterally EFFORT & INSPECTION: Yes able to speak in complete sentences AUSCULTATION: clear to auscultation bilaterally Cardio: COMMON NORMALS: regular rate and regular rhythm RATE: regular rate RHYTHM: regular rhythm GI: COMMON NORMALS: Soft to palpation PALPATION: Yes Soft to palpation, Yes Tenderness to palpation present (GI) (mild suprapubic), No Guarding due to palpation present (GI) and No Rigid due to palpation Extremity: GENERAL: Yes normal exam except as noted and No edema Neuro: COMMON NORMALS: moves all extremities SENSORIUM/ORIENTATION: Yes alert and No Orientation impaired Psych: COMMON NORMALS: mental status grossly normal and Normal thought process present THOUGHT PROCESS: Normal thought process present Course ED course: - Patient was seen and evaluated by me at bedside -Vital signs obtained - Initial evaluation notable for exam as above - Catheter placed with initially bloody urine however this cleared throughout ED evaluation - Labs notable for no leukocytosis, normal hemoglobin. Metabolic panel without acute require intervention. Urinalysis with hematuria with questionable urinary infection given nitrate positive and 5-10 white blood cells - antibiotic given - Imaging notable for no acute finding on ultrasound. This was reviewed post discharge, vRADs had significant delay in image interpretation and patient was comfortable with discharge prior to results after I reviewed images with plan to call if patient needs to return - Upon serial reexamination after treatment the patient was improved - Based on patient history, evaluation, and testing as interpreted the most likely cause of the patient's condition is acute urinary tension secondary to possible urinary tract infection and hematuria of unclear etiology - The results of ED evaluation were discussed with the patient including prescriptions and/or symptomatic cares (if applicable) including appropriate and responsible use, followup plan, and return precautions. The patient verbalized understanding and felt safe for discharge. - Patient discharged in satisfactory condition. Note: Click bubbles or prepopulated cummings in note writing are used for assistance with data collection and billing and are inherently more limited than narrative and other text portions of this note. Please use narrative for additional clinical history and defer to narrative/free test for any case of contradictory information. If information appears in only free text or click bubble it should be considered present or absent as reported. Please contact note production underwriter for clarifications of clinical information or contradictory information. MDM is a brief summary, contradictory or erroneous seeming information should be clarified and full note should be reviewed. Vital Signs: Vital signs: Vital Signs Temperature 98.8 F 08/31/21 02:22 Pulse Rate 55 L 08/31/21 05:47 Respiratory Rate 18 08/31/21 05:47 Blood Pressure 149/72 08/31/21 05:47 Pulse Oximetry 95 08/31/21 05:47 MDM - Male Medical Decision Making 75-year-old gentleman presenting with urinary retention. Catheter placed with initial bloody urine however this cleared well. Questionable urinary tract inf ection. Plan to have outpatient follow-up with urology. Medical Records I reviewed the patient's medical records. Lab Data I reviewed the patient's lab results. : 08/31/21 03:10 08/31/21 03:10 Radiology Impressions Renal Ultrasound 08/31/21 04:10 IMPRESSION: 1. No hydronephrosis of either kidney. 2. Apparent right renal cyst, details above. 3. Other details discussed above. Laboratory Results WBC 7.4 10^3/uL (4.0-10.0) 08/31/21 03:10 RBC 4.51 10^6/uL (4.1-5.3) 08/31/21 03:10 Hgb 13.9 g/dL (11.7-16.6) 08/31/21 03:10 Hct 42.3 % (42.0-52.0) 08/31/21 03:10 MCV 93.8 fl (80-94) 08/31/21 03:10 MCH 30.8 pg (28.0-34.0) 08/31/21 03:10 MCHC 32.9 g/dL (30.0-36.0) 08/31/21 03:10 RDW 14.7 % (12.1-15.1) 08/31/21 03:10 Plt Count 192 10^3/cmm (130-400) 08/31/21 03:10 MPV 9.0 fL (7.4-10.4) 08/31/21 03:10 Neut % (Auto) 49.6 % 08/31/21 03:10 Lymph % (Auto) 34.7 % 08/31/21 03:10 [place] % (Auto) 7.5 % 08/31/21 03:10 Eos % (Auto) 6.9 % 08/31/21 03:10 Baso % (Auto) 0.8 % 08/31/21 03:10 Neut # (Auto) 3.66 10^3/uL (1.8-7.7) 08/31/21 03:10 Lymph # (Auto) 2.6 10^3/uL (0.8-4.8) 08/31/21 03:10 [place] # (Auto) 0.6 10^3/uL (0.2-0.9) 08/31/21 03:10 Eos # (Auto) 0.5 10^3/uL (0.0-0.8) 08/31/21 03:10 Baso # (Auto) 0.1 10^3/uL (0.0-0.1) 08/31/21 03:10 Nucleated RBC % (auto) 0 % 08/31/21 03:10 Nucleated RBCs # 0.0 /100WBC 08/31/21 03:10 Sodium 138 mmol/L (136-145) 08/31/21 03:10 Potassium 4.1 mmol/L (3.5-5.1) 08/31/21 03:10 Chloride 103 mmol/L (98-107) 08/31/21 03:10 Carbon Dioxide 22 mmol/L (22-29) 08/31/21 03:10 Anion Gap 17.1 (5-19) 08/31/21 03:10 BUN 24 mg/dL (8-23) H 08/31/21 03:10 Creatinine 1.0 mg/dL (0.7-1.2) 08/31/21 03:10 GFR Calculation Not Reportable 08/31/21 03:10 Glucose 131 mg/dL (65-115) H 08/31/21 03:10 Calculated Osmolality 292 mOsm/kg (285-295) 08/31/21 03:10 Calcium 10.4 mg/dL (8.5-10.5) 08/31/21 03:10 Total Bilirubin 0.3 mg/dL (0.15-1.2) 08/31/21 03:10 AST 18 U/L (0-40) 08/31/21 03:10 ALT 21 U/L (0-41) 08/31/21 03:10 Alkaline Phosphatase 84 IU/L (40-130) 08/31/21 03:10 Total Protein 7.2 g/dL (6.6-8.7) 08/31/21 03:10 Albumin 4.3 g/dL (3.5-5.2) 08/31/21 03:10 Globulin 2.9 g/dL (1.3-4.6) 08/31/21 03:10 Urine Color Brown (Yellow) 08/31/21 03:04 Urine Appearance Cloudy (CLEAR) 08/31/21 03:04 Urine pH 5 (5-7) 08/31/21 03:04 Ur Specific [place] 1.020 (1.005-1.030) 08/31/21 03:04 Urine Protein 3+ (Negative) H 08/31/21 03:04 Urine Glucose (UA) Norm (Normal) 08/31/21 03:04 Urine Ketones Negative (Negative) 08/31/21 03:04 Urine Blood 3+ (Negative) H 08/31/21 03:04 Urine Nitrate Positive (Negative) H 08/31/21 03:04 Urine Bilirubin Neg (Negative) 08/31/21 03:04 Urine Urobilinogen 1 mg/dL (Negative) H 08/31/21 03:04 Ur Leukocyte Esterase Negative (Negative) 08/31/21 03:04 Urine RBC Too numerous to cnt /hpf (0-2) H 08/31/21 03:04 Urine WBC 5-10 /hpf (0-5) H 08/31/21 03:04 Ur Squamous Epith Cells 0-4 /hpf (0-5) H 08/31/21 03:04 Amorphous Sediment Not Reportable 08/31/21 03:04 Urine Bacteria Trace /hpf (NONE) 08/31/21 03:04 Discharge Plan Discharge Patient Disposition: Home Clinical Impression: Urinary tract infection, Acute urinary retention Condition: Stable Prescriptions: New cefpodoxime 200 mg tablet 200 mg PO Q12H Qty: 20 0RF Rx Instructions: must administer with a meal/food No Action aspirin [Adult Low Dose Aspirin] 81 mg tablet,delayed release (DR/EC) 81 mg PO BEDTIME 0RF Xtandi 40 mg capsule 80 mg PO BID 0RF fluticasone propionate [Flonase Allergy Relief] 50 mcg/actuation spray,suspension 1 - 2 spray intranasal DAILY 0RF Rx Instructions: administer into each nostril omega-3 fatty acids 1,000 mg capsule 1,000 mg PO BEDTIME 0RF oxybutynin chloride 10 mg tablet extended release 24hr 10 mg PO BEDTIME 0RF tamsulosin 0.4 mg capsule 0.4 mg PO BEDTIME 0RF metoprolol tartrate 25 mg tablet 25 mg PO BID@0900,2100 Qty: 60 4RF losartan 50 mg tablet 50 mg PO DAILY Qty: 90 3RF atorvastatin 40 mg tablet 40 mg PO BEDTIME Qty: 90 3RF Vitamin D3 25 mcg (1,000 unit) Capsule 25 mcg PO DAILY 0RF Collagen Powder See Rx Instructions .ROUTE .COMPLEX 0RF Rx Instructions: ONE SCOOPFUL PO DAILY calcium 1 tab PO DAILY 0RF Discharge Orders: Discharge ED (Routine); Ordered 08/31/21 Ordered By: Daniel Shook Referrals: Tati Cole [Primary Care Provider] - Discharge Diet: Usual diet Discharge Activity: Resume usual activity Patient Instructions: Urinary Retention in Men (ED), Urinary Tract Infection in Men (ED), Weaver Catheter Placement and Care (ED) Activity Restrictions/Additional Instructions: Thank you for visiting the emergency department. You were seen and evaluated for urinary retention. The exact cause of the symptoms is unclear, there is slight evidence of urinary tract infection which may be enough to cause this. You will be treated with antibiotics. I will message case management for follow-up with urology in 1 week. Please keep catheter in place until follow-up with urology. Please continue your oxybutynin and tamsulosin. Please return to the emergency department for any signs of infection, if the ca theter stops draining, uncontrolled pain, or anything else that you are concerned about and feel needs emergency department evaluation. Coding Level of Care Code ED Manager Product for Markel Newman
[2021-08-31 03:13] LABS: Basophils # 0.1 10^3/uL (0.0-0.1); Basophils % 0.8 %; Eosinophils # 0.5 10^3/uL (0.0-0.8); Eosinophils % 6.9 %; Hematocrit 42.3 % (42.0-52.0); Hemoglobin 13.9 g/dL (11.7-16.6); Lymphocytes # 2.6 10^3/uL (0.8-4.8); Lymphocytes % 34.7 %; Mean Corpuscular HGB Conc 32.9 g/dL (30.0-36.0); Mean Corpuscular Hemoglobin 30.8 pg (28.0-34.0); Mean Corpuscular Volume 93.8 fl (80-94); Monocytes # 0.6 10^3/uL (0.2-0.9); Monocytes % 7.5 %; Neutrophils # 3.66 10^3/uL (1.8-7.7); Neutrophils % 49.6 %; Nucleated Red Blood Cells % 0 %; Platelet Count 192 10^3/cmm (130-400); Red Blood Count 4.51 10^6/uL (4.1-5.3); Red Cell Distribution Width 14.7 % (12.1-15.1); White Blood Count 7.4 10^3/uL (4.0-10.0)
[2021-08-31 03:33] LABS: Add Urine Culture? Yes; Add Urine Microscopic? YES; Bacteria Urine TRACE /hpf; Bilirubin Urine Neg (Negative); Blood Urine 3+ (Negative); Glucose Urine UA Norm (Normal); Ketones Urine Negative (Negative); Leukocyte Esterase Urine Negative (Negative); Nitrate Urine Positive (Negative); Protein Urine 3+ (Negative); RBC Urine TOO NUMEROUS TO CNT /hpf (0-2); Squamous Epithelial Cell Urine 0-4 /hpf (0-5); Urine Appearance Cloudy (CLEAR); Urine Color Brown (Yellow); Urobilinogen Urine 1 mg/dL (Negative); pH Urine 5 (5-7)
[2021-08-31 03:42] LABS: Alanine Aminotransferase 21 U/L (0-41); Albumin Level 4.3 g/dL (3.5-5.2); Alkaline Phosphatase 84 IU/L (40-130); Anion Gap 17.1 (5-19); Aspartate Amino Transferase 18 U/L (0-40); Blood Urea Nitrogen 24 mg/dL (8-23); Calcium 10.4 mg/dL (8.5-10.5); Carbon Dioxide 22 mmol/L (22-29); Chloride 103 mmol/L (98-107); Globulin 2.9 g/dL (1.3-4.6); Glucose 131 mg/dL (65-115); Osmolality Calculated 292 mOsm/kg (285-295); Potassium 4.1 mmol/L (3.5-5.1); Sodium 138 mmol/L (136-145); Total Bilirubin 0.3 mg/dL (0.15-1.2); Total Protein 7.2 g/dL (6.6-8.7)
--- NOTE | 2021-08-31 04:10 | USR_ITS ---
PROCEDURE INFORMATION: Exam: US Retroperitoneal; Complete; Kidneys and Bladder Exam date and time: 08/31/2021 4:18 AM Age: 75 years old Clinical indication: Other: Hematuria TECHNIQUE: Imaging protocol: Real-time ultrasound of the retroperitoneum with image documentation. Complete exam focused on the kidneys and bladder. COMPARISON: No relevant prior studies available. FINDINGS: The right kidney measures 11.6 cm in length. The left kidney measures 9.9 cm in length. There is no hydronephrosis or perinephric fluid. Neither ureter is visible or dilated. The renal parenchymal thickness and echogenicity are within normal limits. 24 x 20 mm relatively simple appearing cyst in the upper right kidney. There is no sonographically visible renal calculus, or solid mass. Color Doppler imaging demonstrates perfusion to both kidneys. Reportedly, there is a Weaver catheter in the urinary bladder. The bladder is essentially empty, essentially precluding meaningful evaluation. US/US renal BI with PV bladder IMPRESSION: 1. No hydronephrosis of either kidney. 2. Apparent right renal cyst, details above. 3. Other details discussed above.
[2021-08-31 05:47] VITALS: BP 149/72; PULSE 55; RESP 18; O2SAT 95
[2021-08-31] MEDS: cefTRIAXone 1,000 MG in sodium chloride 0.9% (plus) 50 ML 100 MG IV (06:04)
--- NOTE | 2021-09-03 12:42 | DCPLANNER ---
Addendum entered by Micheline Espinoza 10/03/21 08:51: clinical admissions manager was told that when clinic called to schedule an appointment with patient, that he stated that he did not need appointment at this time. Appointment was cancelled. Addendum entered by Micheline Espinoza 09/03/21 12:49: Patient has [employer] insurance, case assistant sent patients information to Blanca with [facility] in [facility], so that the authorization process can be started. Original Note: clinical admissions manager had message to schedule a follow up appointment for patient with Dr. Bustos. clinical admissions manager emailed patients information to Gerald Kent in the office of . Patients information will be printed and reviewed. Clinic will call patient with appointment information.
== END 2021-08-31 06:28 | disposition home or self-care (01) ==
PROVIDERS: Emergency Provider Emergency Medicine; PCP Family Medicine
DX: N39.0 Urinary tract infection, site not specified (principal); R33.9 Retention of urine, unspecified; Z79.82 Long term (current) use of aspirin; I25.10 Atherosclerotic heart disease of native coronary artery without angina pectoris; I10 Essential (primary) hypertension; E78.5 Hyperlipidemia, unspecified; Z85.46 Personal history of malignant neoplasm of prostate; Z87.891 Personal history of nicotine dependence
CPT/HCPCS: 51702; 76770; 76857; 80053; 81001; 85025; 87086; 96365; 99283; J0696

== ENCOUNTER 2021-09-02 11:13 | Emergency (ER) | payer OTHER, MEDICARE, SELFPAY ==
[2021-09-02 11:22] VITALS: BP 187/70; PULSE 51; RESP 16; TEMP 36.3; O2SAT 98; BMI 35.2
--- NOTE | 2021-09-02 11:34 | W.ED.MALEGU ---
HPI - Male Genitourinary General: Chief complaint: Urogenital-Male Stated complaint: Issues with catheter Time Seen by Provider: 09/02/21 11:21 Source: patient and family (Spouse) Mode of arrival: ambulatory Limitations: no limitations History of Present Illness: Patient returns to the emergency department because of concerns about his Weaver catheter was placed in this facility on Friday. He apparently had acute urinary retention on Friday and came to the emergency department and at that time a Weaver catheter was placed. He states he has been uncomfortable since placing that catheter and it has leaked quite a bit of urine around the catheter he says. He states he initially had some bright red blood in his urine which has cleared. He apparently attempted to remove the catheter today without cutting the ship pilot balloon or deflating the balloon within the bladder. He states he was unsuccessful removing the catheter. He states he started bleeding a little bit again since that time. He states he is uncomfortable. He denies any fevers or chills. He denies any history of prior urinary retention. He has a history of prostate cancer and had radioactive implants placed approximately 7 years ago and has actually been doing fairly well. He states that he has some nocturia previously once a night is increased to twice at night over the last year or so. No other constitutional complaints at this time. He does not take any blood thinners. MD Complaint: dysuria Context: indwelling catheter Associated symptoms: Reports hematuria; Deny nausea or vomiting Review of Systems Const: Denies: fever(s), chills or body aches Eyes: Denies: change in vision ENMT: Denies: throat pain, dental pain or nasal congestion Card: Denies: chest pain, palpitations or irregular heart rhythm Resp: Denies: dyspnea, productive cough or non-productive cough GI: Denies: abdominal pain, nausea or vomiting : Reports: difficulty urinating, urinary frequency and hematuria; Denies: flank pain Musc: Denies: neck pain, back pain, extremity pain or extremity swelling Skin/Breast: Denies: rash Neuro: Denies: headache(s), numbness in extremities or weakness in extremities Psych: Denies: anxiety or depression Endo: Denies: polyuria or polydipsia PFS ED PFSH: Medical History CAD (coronary artery disease) COVID-19 Essential hypertension Well controlled continue medicine Hx of atherosclerotic cardiovascular disease Hx of chest pain Hyperlipemia Prostate cancer Surgical History Hx of CABG Social History Smoking and tobacco status: former smoker Quit status (tobacco): has quit using tobacco Year quit tobacco: 45 years ago 3 pack per d Former quit date comment: smoked 20 years Alcohol intake: former Lives independently: Yes Household members: spouse Marital status: Number of children: 3 service: Yes Pets and animals: Yes Pets & animals: dog(s) History of recent travel: No Current gender identity: Male Physical Exam Narrative: EXAM NARRATIVE: He is alert makes good eye contact and is in no acute distress. Speech is goal-directed. Const: COMMON NORMALS: no acute distress, average body habitus and patient oriented x3 HENMT: COMMON NORMALS: normocephalic and Normal nasal mucous membranes and turbinates present HEAD & SCALP: normocephalic NOSE: Normal nasal mucous membranes and turbinates present Eye: COMMON NORMALS: Equal, round and reactive pupils present and conjunctivae normal CONJUNCTIVA: Yes conjunctivae normal PUPIL: Yes Equal, round and reactive pupils present Neck/C-Spine: COMMON NORMALS: full ROM Chest: COMMONS NORMALS: normal inspection of the chest Resp: COMMON NORMALS: normal respiratory effort Cardio: COMMON NORMALS: regular rate and Peripheral pulses 2+ throughout RATE: regular rate PERIPHERAL PULSES: Peripheral pulses 2+ throughout GI: COMMON NORMALS: Normal to inspection, nondistended, normoactive bowel sounds present, Soft to palpation and non-tender PALPATION: Yes Soft to palpation : COMMON NORMALS: Yes no CVA tenderness BLADDER/KIDNEY EXAM: Yes no CVA tenderness PENIS: other (Weaver catheter in place. Evidence of leakage of urine around the catheter ) Back/Pelvis: COMMON NORMALS: no CVA tenderness Extremity: COMMON NORMALS: normal to inspection and full ROM Neuro: COMMON NORMALS: patient oriented x3, moves all extremities, no focal motor deficits and no sensory deficits noted Psych: COMMON NORMALS: mental status grossly normal Course Reevaluation(s): Reevaluation #1: Patient feels much better after Weaver catheter was removed. We will allow him a period of time of drinking and taking oral fluids to ensure that he is can be able to spontaneously urinate. Time: 12:03 Vital Signs: Vital signs: Vital Signs Temperature 97.4 F L 09/02/21 11:22 Pulse Rate 51 L 09/02/21 11:22 Respiratory Rate 16 09/02/21 11:22 Blood Pressure 187/70 09/02/21 11:22 Pulse Oximetry 98 09/02/21 11:22 MDM - Male Medical Decision Making This patient who had an episode of urinary retention late last week and had a Weaver catheter placed had some misadventure with attempting to remove the catheter today. He is subjectively much improved after removal of the catheter. He is producing hematuria at this time. I discussed treatment options at this time. I have emphasized the both he and his spouse repeatedly about the need to keep well-hydrated today. I advised him to get a bottle of water and drink anywhere from a pint to a quart an hour to ensure that he is urinating on an hourly basis. I have advised him that his urine should clear over the next several hours and hopefully not have any episodes of more retention. I further emphasized to him that if he starts developing more clots, distention, worsening suprapubic pressure etc. he should return and we will have to place a three-way catheter and irrigate him. Given his traumatic catheterization last week as well as his traumatic attempt to remove his catheter at this time rather not place another Weaver unless we have to. Both he and his acknowledged our discussion in detail. We discussed return precautions as noted. He has a urologist in [place], Dr. Hsieh, I have advised the patient to contact their office tomorrow to arrange a follow-up for his urinary retention issues. They were appreciative of care and stable for discharge at this time. Discharge Plan Discharge Patient Disposition: Home Clinical Impression: Acute urinary retention, Weaver catheter problem Condition: Stable Prescriptions: No Action aspirin [Adult Low Dose Aspirin] 81 mg tablet,delayed release (DR/EC) 81 mg PO BEDTIME 0RF Xtandi 40 mg capsule 80 mg PO BID 0RF fluticasone propionate [Flonase Allergy Relief] 50 mcg/actuation spray,suspension 1 - 2 spray intranasal DAILY 0RF Rx Instructions: administer into each nostril omega-3 fatty acids 1,000 mg capsule 1,000 mg PO BEDTIME 0RF oxybutynin chloride 10 mg tablet extended release 24hr 10 mg PO BEDTIME 0RF tamsulosin 0.4 mg capsule 0.4 mg PO BEDTIME 0RF metoprolol tartrate 25 mg tablet 25 mg PO BID@0900,2100 Qty: 60 4RF losartan 50 mg tablet 50 mg PO DAILY Qty: 90 3RF atorvastatin 40 mg tablet 40 mg PO BEDTIME Qty: 90 3RF Vitamin D3 25 mcg (1,000 unit) Capsule 25 mcg PO DAILY 0RF Collagen Powder See Rx Instructions .ROUTE .COMPLEX 0RF Rx Instructions: ONE SCOOPFUL PO DAILY calcium 1 tab PO DAILY 0RF cefpodoxime 200 mg tablet 200 mg PO Q12H Qty: 20 0RF Rx Instructions: must administer with a meal/food Discharge Orders: Discharge ED (Routine); Ordered 09/02/21 Ordered By: Brad West Referrals: Tati Cole [Primary Care Provider] - Discharge Diet: Usual diet Discharge Activity: Increase activity as tolerated Patient Instructions: Opioid Safety Activity Restrictions/Additional Instructions: Significantly increase your water intake today. Drink enough water such that you are urinating at least every hour. Should you have difficulty with passing urine, increasing clots or blood or other concerns return to this emergency department immediately for reevaluation and additional treatment. Call your urologist Dr. Hsieh in [place] tomorrow to arrange a follow-up. Continue all your usual medications. Coding Level of Care Code ED Oncology Physician Assistant for Markel Fwchanell Exam Comprehensive
--- NOTE | 2021-09-02 11:43 | PC.NURSE ---
Pt's catheter removed; 10mL of saline removed from balloon and catheter taken out. All parts of catheter in tact. Pt had episode of urine incontinence with relief from retention. Dr. West notified. Pt informed need of UA sample once he can provide one.
== END 2021-09-02 12:55 | disposition home or self-care (01) ==
PROVIDERS: Emergency Provider Emergency Medicine; PCP Family Medicine
DX: T83.9XXA Unspecified complication of genitourinary prosthetic device, implant and graft, initial encounter (principal); R33.9 Retention of urine, unspecified; Z79.82 Long term (current) use of aspirin; I25.10 Atherosclerotic heart disease of native coronary artery without angina pectoris; I10 Essential (primary) hypertension; E78.5 Hyperlipidemia, unspecified; Z85.46 Personal history of malignant neoplasm of prostate; Z87.891 Personal history of nicotine dependence
CPT/HCPCS: 99282

== ENCOUNTER → 2022-07-01 13:38 | Outpatient (BNVA) | payer OTHER, SELFPAY | PROVIDERS: PCP Family Medicine; Visit Provider Internal Medicine Cardiovascular Disease | DX: I25.10 Atherosclerotic heart disease of native coronary artery without angina pectoris (principal); Z95.1 Presence of aortocoronary bypass graft; I10 Essential (primary) hypertension; E78.49 Other hyperlipidemia; E11.9 Type 2 diabetes mellitus without complications; Z79.84 Long term (current) use of oral hypoglycemic drugs; Z87.891 Personal history of nicotine dependence | CPT/HCPCS: 99214; Q3014 ==

== ENCOUNTER → 2023-03-03 13:50 | Outpatient (BNVA) | payer OTHER, SELFPAY | PROVIDERS: PCP Emergency Medicine Emergency Medical Services; Visit Provider Internal Medicine Cardiovascular Disease | DX: I25.10 Atherosclerotic heart disease of native coronary artery without angina pectoris (principal); Z95.1 Presence of aortocoronary bypass graft; I10 Essential (primary) hypertension; Z87.891 Personal history of nicotine dependence | CPT/HCPCS: 99214 ==

== ENCOUNTER → 2023-12-01 15:47 | Outpatient (BNVA) | payer OTHER, SELFPAY | PROVIDERS: PCP Emergency Medicine Emergency Medical Services; Visit Provider Internal Medicine Cardiovascular Disease | DX: R07.9 Chest pain, unspecified (principal); I21.29 ST elevation (STEMI) myocardial infarction involving other sites | CPT/HCPCS: 93005; 99215 ==

== ENCOUNTER 2024-01-08 08:45 | Outpatient (CLI) | payer OTHER, SELFPAY ==
[2024-01-08 09:33] VITALS: BMI 32.1
--- NOTE | 2024-01-08 09:41 | ECG_ITS ---
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
--- NOTE | 2024-01-08 09:41 | NMCV_ITS ---
NM ronit perf SPECT r/s* [id number] Albaro Lerma Age: 78 Gender: M : 1945 Exam Date: 01/08/2024 10:18 Ordering Phys: Jeyson Morrell MD ([email or web address]) Technologist: LUDA Crump Exam Location: [facility] Indications: CABG X 3 STRESS TEST Please see separate stress test report in [facility] for full findings IMAGE PROTOCOL Rest/Stress 1 Lexiscan Day Radiopharmaceutical Dose (mCi) Administration Site Administered by Rest: Tc-99m 10.9 IV LUDA Crump Sestamibi Stress:Tc-99m 33.0 IV LUDA Crump Sestamihilda Rest: 08-Jan-2024 60 Discovery 630 Stress: 08-Jan-2024 30 Discovery 630 0.4mg Lexiscan. Images obtained in supine and prone position. SPECT RESULTS Technical Quality: Good Raw Data Analysis: Normal Image Corrections: No attenuation or motion correction applied Summed Stress Score: 0 Summed Rest Score: 0 Summed Difference Score: 0 PERFUSION FINDINGS Fairly uniform myocardial tracer uptake with no significant perfusion abnormalities FUNCTIONAL RESULTS (calculated via Gated SPECT) Stress Image LV EF (%): 67 Stress EDV (mL):58 TID: 0.94 Stress ESV (mL):19 FUNCTIONAL FINDINGS: Segmental wall motion analysis revealing no gross wall motion abnormalities IMPRESSIONS 1. Myocardial perfusion imaging revealing uniform myocardial tracer uptake 2. Normal LV ejection fraction of 67% 3. LV wall motion analysis revealing no gross wall motion abnormalities. 4. Normal LV volume No similar previous studies are available for comparison Dr Jeyson Morrell MD [facility] (Electronically Signed) Final Date: 09 January 2024 00:46 S
[2024-01-08] MEDS: regadenoson 0.4 Mg/5 ml Syringe IVP (11:15)
[2024-01-08 11:51] VITALS: BP 132/84; PULSE 87
== END 2024-01-08 08:46 | disposition home or self-care (01) ==
PROVIDERS: PCP Family Medicine; Visit Provider Internal Medicine Cardiovascular Disease
DX: Z98.61 Coronary angioplasty status (principal); R06.02 Shortness of breath
CPT/HCPCS: 36415; 78452; 93017; 96374; A9500; J2785

== ENCOUNTER → 2024-06-01 13:51 | Outpatient (BNVA) | payer OTHER, SELFPAY | PROVIDERS: PCP Family Medicine; Visit Provider Internal Medicine Cardiovascular Disease | DX: I25.10 Atherosclerotic heart disease of native coronary artery without angina pectoris (principal); E78.49 Other hyperlipidemia; I10 Essential (primary) hypertension; R06.09 Other forms of dyspnea; Z87.891 Personal history of nicotine dependence | CPT/HCPCS: 99214 ==

== ENCOUNTER 2024-11-19 01:59 | Emergency (ER) | payer OTHER, MEDICARE, SELFPAY ==
[2024-11-19 02:09] VITALS: BP 134/92; PULSE 82; RESP 16; TEMP 36.6; O2SAT 97
[2024-11-19 02:34] LABS: Basophils # 0.1 10^3/uL (0.0-0.1); Basophils % 0.5 %; Eosinophils # 0.3 10^3/uL (0.0-0.8); Eosinophils % 2.3 %; Hematocrit 44.5 % (37-53); Lymphocytes # 3.6 10^3/uL (0.8-4.8); Lymphocytes % 27.8 %; Mean Corpuscular HGB Conc 33.5 g/dL (30-55); Mean Corpuscular Volume 89.7 fl (82-101); Mean Platelet Volume 9.3 fL (7.4-10.4); Monocytes # 0.8 10^3/uL (0.2-0.9); Monocytes % 6.3 %; Neutrophils # 8.02 10^3/uL (1.8-7.7); Neutrophils % 62.7 %; Nucleated Red Blood Cells % 0 %; Platelet Count 231 10^3/cmm (157-399); Red Blood Count 4.96 10^6/uL (3.85-5.65); Red Cell Distribution Width 15.9 % (12.1-15.1)
[2024-11-19 03:00] LABS: Alkaline Phosphatase 89 U/L (40-130); Blood Urea Nitrogen 24 mg/dL (8-23); Calcium 9.8 mg/dL (8.5-10.5); Carbon Dioxide 21 mmol/L (22-29); Chloride 102 mmol/L (98-107); Globulin 3.8 g/dL (1.3-4.6); Glucose 145 mg/dL (65-115); Osmolality Calculated 291 mOsm/kg (285-295); Sodium 137 mmol/L (136-145); Total Bilirubin 0.3 mg/dL (0.15-1.2); Total Protein 7.8 g/dL (6.6-8.7)
[2024-11-19 03:01] LABS: Lactic Sepsis W/Reflex 2.2 mmol/L (0.5-2.2)
[2024-11-19 03:13] LABS: Alanine Aminotransferase < 5 U/L (0-41)
[2024-11-19 03:14] LABS: Anion Gap 18.3 (5-19); Aspartate Amino Transferase 20 U/L (0-40); Potassium 4.3 mmol/L (3.5-5.1)
--- NOTE | 2024-11-19 03:42 | W.ED.MALEGU ---
HPI - Male Genitourinary General: Chief complaint: Urogenital-Male Stated complaint: Urinary Cath issue Time Seen by Provider: 11/19/24 03:39 History of Present Illness: 79-year-old man who presents emergency room with urinary retention. He has a Weaver catheter that is been placed by urology after a prostate biopsy. He says it has not been draining and he is now having discomfort in his pelvic region. He said he is tried wiggling around but that is all. No fevers. No nausea or vomiting. Related Data Home Medications ?Medication ?Instructions ?Recorded ?Confirmed tamsulosin 0.4 mg capsule 0.4 mg PO BEDTIME 07/26/19 05/22/21 aspirin 81 mg tablet,delayed 81 mg PO BEDTIME 04/25/20 05/22/21 release (Adult Low Dose Aspirin) fluticasone propionate 50 1 - 2 spray intranasal DAILY 04/25/20 05/22/21 mcg/actuation nasal spray,suspension (Flonase Allergy Relief) omega-3 fatty acids 1,000 mg 1,000 mg PO BEDTIME 04/25/20 05/22/21 capsule oxybutynin chloride 10 mg 10 mg PO BEDTIME 04/25/20 05/22/21 tablet,extended release 24 hr calcium 1 tab PO DAILY 04/16/21 05/22/21 cholecalciferol (vitamin D3) 25 25 mcg PO DAILY 04/16/21 05/22/21 mcg (1,000 unit) capsule (Vitamin D3) enzalutamide 40 mg capsule (Xtandi) 160 mg PO DAILY 07/01/22 Previous Rx's ?Medication ?Instructions ?Recorded hydrochlorothiazide 25 mg tablet 25 mg PO DAILY #90 tabs 12/01/23 potassium chloride 8 mEq 8 meq PO DAILY 30 days #30 caps 12/01/23 capsule,extended release losartan 100 mg tablet 100 mg PO DAILY 30 days #30 tabs 06/01/24 atorvastatin 40 mg tablet See Rx Instructions .Route 08/23/24 .COMPLEX #90 tabs Allergies Allergy/AdvReac Type Severity Reaction Status Date / Time No Known Allergies Allergy Verified 06/01/24 14:07 Review of Systems Narrative: Constitutional symptoms: Negative except as documented in HPI. Skin symptoms: Negative except as documented in HPI. Eye symptoms: Negative except as documented in HPI. ENMT symptoms: Negative except as documented in HPI. Respiratory symptoms: Negative except as documented in HPI. Cardiovascular symptoms: Negative except as documented in HPI. Gastrointestinal symptoms: Negative except as documented in HPI. Genitourinary symptoms: Negative except as documented in HPI. Musculoskeletal symptoms: Negative except as documented in HPI. Neurologic symptoms: Negative except as documented in HPI. Psychiatric symptoms: Negative except as documented in HPI. Endocrine symptoms: Negative except as documented in HPI. PFSH ED PFSH: Medical History COVID-19 Prostate cancer CAD (coronary artery disease) Hx of chest pain Hx of atherosclerotic cardiovascular disease Hyperlipemia Essential hypertension Surgical History Hx of CABG Social History Smoking and tobacco/nicotine status: former use of tobacco/nicotine Quit status (tobacco/nicotine): has quit using Year quit tobacco: 45 years ago 3 pack per d Former quit date comment: smoked 20 years Alcohol intake: former Substance/Drug Use: never Lives independently: Yes Household members: spouse Marital status: Number of children: 3 service: Yes Pets and animals: Yes Pets & animals: dog(s) Current gender identity: Male Physical Exam Narrative: EXAM NARRATIVE: General: Alert, no acute distress. Skin: Warm, dry. Head: Normocephalic, atraumatic. Neck: Supple, trachea midline. Eye: Extraocular movements are intact. Ears, nose, mouth and throat: mucosa moist. Cardiovascular: Regular, Normal peripheral perfusion. Respiratory: Lungs are clear to auscultation, respirations are non-labored, breath sounds are equal, Symmetrical chest wall expansion. Gastrointestinal: Soft, suprapubic tenderness, Non distended Musculoskeletal: Normal ROM, no deformity. Neurological: Alert and oriented, No focal neurological deficit observed. Psychiatric: Cooperative, appropriate mood & affect. Course Vital Signs: Vital signs: Vital Signs Temperature 98 F 11/19/24 02:09 Pulse Rate 82 11/19/24 02:09 Respiratory Rate 16 11/19/24 02:09 Blood Pressure 134/92 11/19/24 02:09 Pulse Oximetry 97 11/19/24 02:09 MDM - Male Medical Decision Making Medical decision making: Differential diagnosis for patient with urinary retention including but not limited to and based on the above HPI, review of systems and physical exam:-: Urinary retention. Urinary tract infection. concerns for systemic infection, renal dysfunction Orders placed to evaluate differential diagnosis based on the above differential, HPI and physical exam Lab Review: Laboratory results were reviewed and interpreted by myself the emergency room physician. Mild leukocytosis. No anemia. BUN is elevated slightly at 24 with a normal creatinine is 0.8. This is similar to previous I reviewed the patient's medical record. Reexamination: Patient is much relieved. No more pain. Weaver was flushed and is now draining. He does have some small clots. Has been trained on how to flush the Weaver at home. Assessment and plan: Weaver catheter obstruction - Discharged home - Discussed plan with patient. Answered any questions. - Evaluation and treatment of this problem were appropriate in the emergency setting. Lab Data 11/19/24 02:27 11/19/24 02:27 Laboratory Results WBC 12.80 10^3/uL (3.29-11.43) H 11/19/24 02:27 RBC 4.96 10^6/uL (3.85-5.65) 11/19/24 02:27 Hgb 14.90 g/dL (11.27-16.99) 11/19/24 02:27 Hct 44.5 % (37-53) 11/19/24 02:27 MCV 89.7 fl (82-101) 11/19/24 02:27 MCH 30.0 pg (27-33) 11/19/24 02:27 MCHC 33.5 g/dL (30-55) 11/19/24 02:27 RDW 15.9 % (12.1-15.1) H 11/19/24 02:27 Plt Count 231 10^3/cmm (157-399) 11/19/24 02:27 MPV 9.3 fL (7.4-10.4) 11/19/24 02:27 Neut % (Auto) 62.7 % 11/19/24 02:27 Lymph % (Auto) 27.8 % 11/19/24 02:27 [place] % (Auto) 6.3 % 11/19/24 02:27 Eos % (Auto) 2.3 % 11/19/24 02:27 Baso % (Auto) 0.5 % 11/19/24 02:27 Neut # (Auto) 8.02 10^3/uL (1.8-7.7) H 11/19/24 02:27 Lymph # (Auto) 3.6 10^3/uL (0.8-4.8) 11/19/24 02:27 [place] # (Auto) 0.8 10^3/uL (0.2-0.9) 11/19/24 02:27 Eos # (Auto) 0.3 10^3/uL (0.0-0.8) 11/19/24 02:27 Baso # (Auto) 0.1 10^3/uL (0.0-0.1) 11/19/24 02:27 Nucleated RBC % (auto) 0 % 11/19/24 02:27 Nucleated RBCs # 0.0 /100WBC 11/19/24 02:27 Sodium 137 mmol/L (136-145) 11/19/24 02:27 Potassium 4.3 mmol/L (3.5-5.1) 11/19/24 02:27 Chloride 102 mmol/L (98-107) 11/19/24 02:27 Carbon Dioxide 21 mmol/L (22-29) L 11/19/24 02:27 Anion Gap 18.3 (5-19) 11/19/24 02:27 BUN 24 mg/dL (8-23) H 11/19/24 02:27 Creatinine 0.8 mg/dL (0.7-1.2) 11/19/24 02:27 GFR Calculation Not Reportable 11/19/24 02:27 Glucose 145 mg/dL (65-115) H 11/19/24 02:27 Calculated Osmolality 291 mOsm/kg (285-295) 11/19/24 02:27 Lactic Acid 2.2 mmol/L (0.5-2.2) 11/19/24 02:27 Calcium 9.8 mg/dL (8.5-10.5) 11/19/24 02:27 Total Bilirubin 0.3 mg/dL (0.15-1.2) 11/19/24 02:27 AST 20 U/L (0-40) 11/19/24 02:27 ALT < 5 U/L (0-41) 11/19/24 02:27 Alkaline Phosphatase 89 U/L (40-130) 11/19/24 02:27 Total Protein 7.8 g/dL (6.6-8.7) 11/19/24 02:27 Albumin 4.0 g/dL (3.5-5.2) 11/19/24 02:27 Globulin 3.8 g/dL (1.3-4.6) 11/19/24 02:27 All radiology interpretation(s) finalized by discharge Discharge Plan Discharge Patient Disposition: Home Clinical Impression: Weaver catheter problem Condition: Stable Prescriptions: No Action aspirin [Adult Low Dose Aspirin] 81 mg tablet,delayed release (DR/EC) 81 mg PO BEDTIME fluticasone propionate [Flonase Allergy Relief] 50 mcg/actuation spray,suspension 1 - 2 spray intranasal DAILY Rx Instructions: administer into each nostril omega-3 fatty acids 1,000 mg capsule 1,000 mg PO BEDTIME oxybutynin chloride 10 mg tablet extended release 24hr 10 mg PO BEDTIME Xtandi 40 mg capsule 160 mg PO DAILY tamsulosin 0.4 mg capsule 0.4 mg PO BEDTIME hydrochlorothiazide 25 mg tablet 25 mg PO DAILY Qty: 90 3RF potassium chloride 8 mEq capsule, extended release 8 meq PO DAILY 30 Days Qty: 30 5RF losartan 100 mg tablet 100 mg PO DAILY 30 Days Qty: 30 5RF atorvastatin 40 mg tablet See Rx Instructions .ROUTE .COMPLEX Qty: 90 3RF Dose Instruction: TAKE 1 TABLET AT BEDTIME Rx Instructions: TAKE 1 TABLET AT BEDTIME Vitamin D3 25 mcg (1,000 unit) Capsule 25 mcg PO DAILY calcium 1 tab PO DAILY Discharge Orders: Discharge ED (Routine); Ordered 11/19/24 Ordered By: lAia Horan Referrals: Alida Amaya MD [Primary Care Provider, Family Practice] Discharge Diet: Usual diet Discharge Activity: Increase activity as tolerated Patient Instructions: Weaver Catheter Placement and Care (ED), Opioid Safety, Pain Management Activity Restrictions/Additional Instructions: Thank you for choosing [facility] for your healthcare needs today. You have been screened and evaluated and felt safe for discharge. Health conditions do change or evolve sometimes and as such it is important that you follow up with your Primary Doctor to be re checked, 3-5 days is a general good time frame for follow up. You are always welcome to return to the ED for re assessment if your symptoms are worsening or you have new concerns Print Language: Italian Coding Level of Care Code ED Sales Support Engineer for Markel Newman
[2024-11-19 04:20] LABS: Reflex Lactate Order REFLEX LACTIC ORDERD
[2024-11-19 06:11] VITALS: BP 131/74; PULSE 80; RESP 19; O2SAT 94
== END 2024-11-19 06:13 | disposition home or self-care (01) ==
PROVIDERS: Emergency Provider Emergency Medicine; PCP Family Medicine
DX: T83.091A Other mechanical complication of indwelling urethral catheter, initial encounter (principal); X58.XXXA Exposure to other specified factors, initial encounter; Z79.82 Long term (current) use of aspirin; Z87.891 Personal history of nicotine dependence; I25.10 Atherosclerotic heart disease of native coronary artery without angina pectoris; Z85.46 Personal history of malignant neoplasm of prostate; E78.5 Hyperlipidemia, unspecified; I10 Essential (primary) hypertension; Z95.1 Presence of aortocoronary bypass graft
CPT/HCPCS: 36415; 80053; 83605; 85025; 87040; 99283

== ENCOUNTER → 2024-12-03 10:11 | Outpatient (BNVA) | payer OTHER, SELFPAY | PROVIDERS: PCP Family Medicine; Visit Provider Nurse Practitioner Family | DX: I25.10 Atherosclerotic heart disease of native coronary artery without angina pectoris (principal); I10 Essential (primary) hypertension; E78.49 Other hyperlipidemia; E11.9 Type 2 diabetes mellitus without complications; Z79.4 Long term (current) use of insulin; Z95.1 Presence of aortocoronary bypass graft; Z79.82 Long term (current) use of aspirin; Z87.891 Personal history of nicotine dependence; R07.9 Chest pain, unspecified; R06.09 Other forms of dyspnea | CPT/HCPCS: 93005; 99214 ==

== ENCOUNTER 2024-12-10 08:27 | Outpatient (CLI) | payer OTHER, SELFPAY ==
--- NOTE | 2024-12-10 | ECG_ITS ---
[facility]: 2024[facility]10 Pat Name: Albaro Lerma Department: Room: Gender: Male Orthopedically Impaired Teacher: : 1945 Requested By: Kriss Quezada Order Number: [id number] Moran MD: Javier Zepeda M.D. Interpretive Statements LEXISCAN SESTAMIBI STRESS TEST Procedure: At the baseline, the blood pressure was 154/77 mmHg with a heart rate of 51 bpm. The electrocardiogram showed sinus bradycardia, normal axis with normal ST and T's. Interventricular conduction delay. The Lexiscan was infused over a period of 20 seconds. A total of 0.4 mg of Lexiscan was infused. The stress phase was continued for a total of 5 minutes. Heart rate was at the end of stress phase was 62 bpm and a blood pressure of 137/65 mmHg. The EKG at the peak infusion revealed normal sinus rhythm with no significant ST-T wave changes. Sestamibi was injected 20 seconds after the Lexiscan infusion. Heart rate at the end of recovery phase was 61 bpm. Conclusion: 1. Normal EKG response to Lexiscan infusion 2. No Lexiscan induced chest pain or cardiac arrhythmia. 3. Normal blood pressure and heart rate response. 4. Sestamibi/sestamibi perfusion scan pending; see separate report. Electronically Signed On 12-25-2024 13:21:58 CDT by Javier Zepeda M.D. [email or web address]
[2024-12-10 08:30] VITALS: BMI 35.2
--- NOTE | 2024-12-10 09:00 | NMCV_ITS ---
NM ronit perf SPECT r/s* [id number] Albaro Lerma Age: 79 Gender: M : 1945 Exam Date: 12/10/2024 09:32 Ordering Phys: Kriss Quezada Technologist: LUDA Slaughter Exam Location: [facility] Indications: cp STRESS TEST Please see separate stress test report in [facility] for full findings IMAGE PROTOCOL Rest/Stress 1 Lexiscan Day Radiopharmaceutical Dose (mCi) Administration Site Administered by Rest: Tc-99m 10.8 IV Crys Piedra CASH REGISTER BALANCER Sestamibi Stress:Tc-99m 32.6 IV Crys Piedra, CASH REGISTER BALANCER Sestamibi Rest: 10-Dec-2024 60 Discovery 630 Stress: 10-Dec-2024 30 Discovery 630 0.4mg Lexiscan. Images obtained in supine and prone position. SPECT RESULTS Technical Quality: Good Raw Data Analysis: Normal Image Corrections: No attenuation or motion correction applied Summed Stress Score: 0 Summed Rest Score: 0 Summed Difference Score: 0 PERFUSION FINDINGS SPECT images demonstrate homogeneous tracer distribution throughout the myocardium. FUNCTIONAL RESULTS (calculated via Gated SPECT) Stress Image LV EF (%): 71 Stress EDV (mL):73 TID: 0.9 Stress ESV (mL):21 FUNCTIONAL FINDINGS: There is normal left ventricular systolic function. IMPRESSIONS 1. Normal myocardial perfusion imaging with no evidence of ischemia. 2. LV systolic function is normal. Javier Zepeda MD (Electronically Signed) Final Date: 11 December 2024 12:37 S
[2024-12-10] MEDS: regadenoson 0.4 Mg/5 ml Syringe IVP (10:00)
[2024-12-10 10:19] VITALS: BP 146/84; PULSE 72
== END 2024-12-10 08:28 | disposition home or self-care (01) ==
LOC: CDL 08:29
PROVIDERS: Family Provider Physician Assistant; PCP Family Medicine; Visit Provider Nurse Practitioner Family
DX: R07.9 Chest pain, unspecified (principal)
CPT/HCPCS: 36415; 78452; 93017; 96374; A9500; J2785